=== PATIENT | female | born 1940 | race Caucasian/White ===

== ENCOUNTER 2018-11-28 14:11 | Inpatient (IN) ==
[2018-11-28] MEDS ORDERED: MoRPHine SULFATE 4 MG/ML 1 ML CARP\\VIAL IV STA (15:14)
[2018-11-28] MEDS ORDERED: ONDANSETRON INJ 2 MG/ML 2 ML VIAL IV STA (15:14)
[2018-11-28 15:30] LABS: Basophils # (auto) 0.02 K/uL (0-0.2); Basophils % (auto) 0.2 %; Eosinophils % (auto) 1.7 %; Hemoglobin 12.1 g/dL (12.0-16.0); Immature Granulocytes % (auto) 0.9 %; Lymphocytes % (auto) 14.6 %; Mean Corpuscular Hgb Conc 34.6 g/dL (32-36); Mean Corpuscular Volume 83.7 fL (80-100); Mean Platelet Volume 7.9 fL (7.4-10.4); Monocytes % (auto) 11.2 %; Neutrophils # (auto) 8.31 K/uL (1.4-6.5); Neutrophils % (auto) 71.4 %; Platelet Count 276 K/uL (130-400); RDW Coefficient of Variation 14.1 % (11.5-14.5); RDW Standard Deviation 43.6 fL (36.4-46.3); Red Blood Count 4.18 M/uL (4.2-5.4); White Blood Count 11.63 K/uL (4.8-10.8)
[2018-11-28 15:46] LABS: BUN Creatinine Ratio 20.2 (10-20); Calcium 8.4 mg/dl (8.5-10.1); Creatinine Clr Calc Pharmacy 58.2 ml/min; Est GFR (African American) 96.2; Potassium 3.9 mmol/L (3.5-5.1)
[2018-11-28] MEDS ORDERED: LORazepam 0.5 MG/1 ML VIAL IV STA (15:57)
--- NOTE | 2018-11-28 16:49 | CT Scan Report ---
CT SCAN OF THE LUMBAR SPINE WITHOUT IV CONTRAST CLINICAL HISTORY: Low back pain. COMPARISON STUDY: Abdominal CT dated 11/25/2018 in 09/13/2018. TECHNIQUE: CT scan of the lumbar spine is performed from the lower thoracic spine to the sacrum. Imag es are reviewed in the axial, sagittal, and coronal planes. IV contrast was not administered for this examination. A dose lowering technique was utilized adhering to the principles of ALARA. CT DOSE: 1229.10 mGy.cm FINDINGS: The skeletal structures are heterogeneously osteopenic. There is no evidence of acute fract ure or malalignment. There is a mild to moderate chronic compression deformity of L4, unchanged from prior studies. A chronic compression deformity of T11 with evidence of kyphoplasty is partially visua lized. Vertebral body height is otherwise maintained throughout the lumbar spine. Alignment is preser brunilda. The transverse and spinous processes are intact. There is no spondylolysis. No lytic or blastic lesion is seen. Facet arthropathy is noted in the lower lumbar region. Intervertebral disc spaces are maintained. There is no evidence of large disc herniation or high-grade central canal stenosis by CT . Mild to moderate facet arthropathy is seen in the lower lumbar region. There are bilateral sacral i nsufficiency fractures, as well as chronic posttraumatic deformity of S2. Patchy sclerotic change in the medial right ilium is also unchanged from previous. There is fatty atrophy of the paraspinous mus culature. The partially imaged kidneys demonstrate cortical atrophy. Advanced atherosclerotic calcifi cation is noted in the normal caliber abdominal aorta. No retroperitoneal adenopathy is identified. A normal appendix is identified. IMPRESSION: 1. No acute bony abnormality is identified involving the lumbar spine. There has been no change from the 11/25/[address] scan. 2. A chronic compression deformity of L4 and chronic posttraumatic change/insufficiency fractures of the sacrum are similar to previous. 3. Mild spondylosis as above. Dictated: 11/28/2018 3:59 PM Transcribed: 11/28/2018 4:46 PM Sheri [id number] [facility] Electronically signed by: Rajesh Olivas M.D. 11/28/2018 4:47 PM
--- NOTE | 2018-11-28 16:53 | CT Scan Report ---
CT SCAN OF THE THORACIC SPINE WITHOUT IV CONTRAST CLINICAL HISTORY: Thoracic back pain. COMPARISON STUDY: Chest CT dated 11/25/2018 and 09/13/2018. TECHNIQUE: CT scan of the thoracic spine is performed from the lower cervical spine to the upper lumb ar spine. Images are reviewed in the axial, sagittal, and coronal planes. IV contrast was not adminis tered for this examination. A dose lowering technique was utilized adhering to the principles of ALAR A. FINDINGS: The skeletal structures are heterogeneously osteopenic. There is no evidence of acute fract ure or malalignment involving the thoracic spine. Again seen are compression deformities of T9 and T1 1 with evidence of vertebroplasty. There is mild paravertebral edema identified at the T11 kyphoplast y level. Additional chronic compression deformities are seen involving T6, T7, and T8. These are unch anged from 11/25/2018. No significantly retropulsed fragments are identified. Hyperkyphosis is observed . The transverse and spinous processes are intact. No lytic or blastic lesion is seen. Small anterior osteophytes are seen throughout. There is mild multilevel degenerative disc space narrowing. There i s no evidence of large disc herniation or high-grade central canal stenosis by CT. There is fatty atr ophy of the paraspinous musculature. Multifocal pulmonary metastatic disease as well as hepatic metas tatic disease are similar to previous. A central venous infusion port catheter is partially visualize d. IMPRESSION: 1. No acute bony abnormality is seen involving the thoracic spine. 2. There are numerous chronic compression deformities with evidence of T9 and T11 vertebroplasty. Thi s is unchanged from 11/25/2018. 3. Mild paravertebral edema is noted at the T11 kyphoplasty level. This is nonspecific and may be on a postsurgical basis if vertebroplasty was recent. Clinical correlation will be required. 4. Multifocal pulmonary and hepatic metastases are again noted. Dictated: 11/28/2018 4:07 PM Transcribed: 11/28/2018 4:48 PM Sheri [id number] [facility]_[place] Electronically signed by: Rajesh Olivas M.D. 11/28/2018 4:51 PM
--- NOTE | 2018-11-28 18:04 | Emergency Department Note ---
Entered by Sue Elmore acting as a scribe for History of Present Illness General Chief complaint: Back Injury/Pain Stated complaint: SEVERE BACK PAIN, HIGH BP Time Seen by Provider: 11/28/18 14:46 Source: patient History of Present Illness Onset (ago): year(s) 1 ((acutely worse over the past few days)) Location: back Severity: severe Pain Consistency: + other (worsening) Maximum Pain Intensity: 9 Quality: + other (back pain) Associated symptoms: + other (Positive high blood pressure (abnormal). Negative recent falls, alcohol or tobacco use. ); no nausea/vomiting The patient is a 78 white female w/ PMHx of hypothyroidism, colon cancer, back pain who presents to the ED w/ CC of severe back pain beginning 1 year ago but it is acutely worse over the past couple of days. She reportedly states she came to the ED as she as a car ride for an appointment in the next couple of days that she feels she may not be able to tolerate due to her pain. She is accompanied by a family member who states she has been taking oxycodone for her pain however, it is not been working so she had a fentanyl patch placed 3 days ago however, it is not sticking completely. Her family member also notes that her blood pressure has been abnormally high lately. Pt denies any recent falls, nausea, vomiting, alcohol or tobacco use. She states she had a kyphoplasty done about 2 to 3 weeks ago. Home Medications Home Medications Medication Instructions Recorded Confirmed Type enoxaparin 40 mg SUBCUT DAILY 11/28/18 11/28/18 History ergocalciferol (vitamin D2) 50,000 unit PO WK 11/28/18 11/28/18 History [Vitamin D2] fentanyl 25 mcg TOPICAL Q3D 11/28/18 11/28/18 History levothyroxine 50 mcg PO DAILY 11/28/18 11/28/18 History meloxicam 7.5 mg PO DAILY PRN 11/28/18 11/28/18 History omeprazole 20 mg PO DAILY 11/28/18 11/28/18 History ondansetron HCl 8 mg PO UD PRN 11/28/18 11/28/18 History oxycodone 5 mg PO Q4H PRN 11/28/18 11/28/18 History Allergies Allergy/AdvReac Type Severity Reaction Status Date / Time No Known Allergies Allergy Unverified 11/28/18 15:02 Past Med/Surg History Medical History History of pulmonary embolism (Chronic) 11/2017. On Lovenox Colon cancer metastasized to lung (Chronic) Hypothyroidism (Chronic) HLD (hyperlipidemia) (Chronic) HTN (hypertension) (Chronic) Back pain (Chronic) Colon cancer (Chronic) Hypothyroidism (Chronic) Surgical History H/O kyphoplasty Family History Other No pertinent family history Social History Preferred Language: Dominican Communication Ability: Effective Hand Crocheter Required: No Beliefs That Will Affect Care: None Current Living Situation: Family Current Living Situation Comment: son and dtr Feels Safe at Home: Yes Safety Concerns: Feels Safe At This Time Smoking Status: Never smoker Hx Alcohol Use: No Hx Substance Use: No Review of Systems See HPI for pertinent positives & negatives. and A total of 10 systems reviewed and were otherwise negative Physical Exam Vital Signs Vital Signs - 24 hr 11/28/18 14:26 11/28/18 16:11 Temperature 36.9 C Temperature Source Oral Sepsis Recent Fever Within 48 Hours No Sepsis New/Unexplained Change in Mental Status No Sepsis Action Taken by Nursing No Action Required Pulse Rate 95 H Pulse Rate [Finger] 86 Respiratory Rate 20 21 Blood Pressure 181/94 H Blood Pressure [Left Arm] 135/87 Blood Pressure Mean 123 Blood Pressure Mean [Left Arm] 103 Pulse Oximetry 93 94 Oxygen Delivery Method Room Air Room Air GENERAL: Mildly uncomfortable in appearance. Appears older than stated age. Poor dentition. EYE EXAM: Normal conjunctiva. PERRL, no anisocoria and EOM's grossly intact w/o pain. OROPHARYNX: Moist mucous membranes. Grossly normal dentition. NECK: Supple, no nuchal rigidity, no adenopathy, non-tender. No signs of meningismus. LUNGS: Clear to auscultation. Normal chest wall mechanics. HEART: NSR, no MRG. ABDOMEN: Abdomen soft, non-tender, normo-active bowel sounds, no masses, no rebound or guarding. BACK: Thoracic and lumbar spine TTP SKIN: No rashes and no bruising. UPPER EXTREMITIES: Upper extremities are grossly normal. LOWER EXTREMITIES: Negative straight leg raise bilaterally. No saddle anesthesia. NEURO EXAM: A&O x3, cranial nerves II-XII grossly intact, normal speech, moves all 4 extremities on command w/o issue. Course 1501: Past medical records reviewed. The patient was evaluated in room A3. A complete history and physical exam was performed. 1710: I discussed her findings with her. She is in agreement. 1726: I discussed the patient's case with Nanci Patricia PA-C. Dr. Lino [facility] will evaluate the patient for further management. Consultations Consultation #1: I discussed the patient's case with Nanci Patricia PA-C. Dr. Lino, [facility] will evaluate the patient for further management. Time: 17:26 Administered Medications Acetaminophen (Tylenol) 650 mg PO Q4H PRN PRN Reason: pain/fever Stop: 12/28/18 19:13 Last Admin: 11/28/18 21:58 Dose: 650 mg Documented by: [id number] Baclofen (Lioresal) 10 mg PO BID MIRTA Stop: 12/29/18 08:59 Last Admin: 11/29/18 10:52 Dose: 10 mg Documented by: [id number] Docusate Sodium (Colace) 100 mg PO BID MIRTA Stop: 12/28/18 20:59 Last Admin: 11/29/18 08:02 Dose: 100 mg Documented by: [id number] Admin: 11/28/18 20:41 Dose: Not Given Documented by: [id number] Enoxaparin Sodium (Lovenox) 40 mg SQ DAILY MIRTA Stop: 12/29/18 08:59 Last Admin: 11/29/18 08:01 Dose: 40 mg Documented by: [id number] Fentanyl (Duragesic) 25 mcg TD Q3D MIRTA Stop: 12/12/18 19:29 Last Admin: 11/28/18 20:39 Dose: 25 mcg Documented by: [id number] Hydromorphone HCl (Dilaudid) 1 mg IV Q2H PRN PRN Reason: Pain Stop: 12/12/18 18:10 Last Admin: 11/29/18 15:48 Dose: 1 mg Documented by: [id number] Admin: 11/29/18 10:22 Dose: 1 mg Documented by: [id number] Admin: 11/29/18 07:17 Dose: 1 mg Documented by: [id number] Admin: 11/29/18 03:36 Dose: 1 mg Documented by: [id number] Admin: 11/28/18 22:10 Dose: 1 mg Documented by: [id number] Hydromorphone HCl (Dilaudid) 1 mg PO Q3H PRN PRN Reason: pain Stop: 12/13/18 08:28 Last Admin: 11/29/18 12:55 Dose: 1 mg Documented by: [id number] Levothyroxine Sodium (Synthroid) 50 mcg PO DAILYBB [facility] Stop: 12/29/18 06:29 Last Admin: 11/29/18 06:02 Dose: 50 mcg Documented by: [id number] Lidocaine (Lidoderm 5%) 1 patch TD QAM MIRTA Stop: 12/29/18 08:59 Last Admin: 11/29/18 10:52 Dose: 1 patch Documented by: [id number] Lorazepam (Ativan) 0.5 mg PO Q6 PRN PRN Reason: Anxiety Stop: 12/28/18 19:13 Last Admin: 11/29/18 15:46 Dose: 0.5 mg Documented by: [id number] Admin: 11/29/18 09:33 Dose: 0.5 mg Documented by: [id number] Miscellaneous (Fentanyl Patch Check Placement) 1 ea N/A QS [facility] Stop: 12/29/18 00:00 Last Admin: 11/29/18 15:50 Dose: 1 ea Documented by: [id number] Admin: 11/29/18 08:03 Dose: 1 ea Documented by: [id number] Admin: 11/29/18 01:15 Dose: 1 ea Documented by: [id number] Ondansetron HCl (Zofran) 4 mg IV Q6H PRN PRN Reason: Nausea Stop: 12/28/18 19:13 Last Admin: 11/29/18 06:07 Dose: 4 mg Documented by: [id number] Pantoprazole Sodium (Protonix) 40 mg PO DAILY [facility] Stop: 12/29/18 08:59 Last Admin: 11/29/18 08:02 Dose: 40 mg Documented by: [id number] Polyethylene Glycol (Miralax Powder Packet) 17 gm PO DAILY [facility] Stop: 12/28/18 19:13 Last Admin: 11/29/18 08:02 Dose: 17 gm Documented by: [id number] Admin: 11/28/18 20:41 Dose: Not Given Documented by: [id number] Prednisone (Prednisone) 40 mg PO DAILY [facility] Stop: 12/03/18 09:01 Last Admin: 11/29/18 12:41 Dose: 40 mg Documented by: [id number] Sennosides (Senokot) 8.8 mg PO HS MIRTA Stop: 12/28/18 20:59 Last Admin: 11/28/18 20:41 Dose: Not Given Documented by: [id number] Discontinued Medications Albuterol (Duoneb) 3 ml NEB NOW STA Stop: 11/29/18 11:51 Last Admin: 11/29/18 13:50 Dose: 3 ml Documented by: [id number] Docusate Sodium (Colace) 100 mg PO BID MIRTA Stop: 12/29/18 08:59 Last Admin: 11/29/18 10:52 Dose: 100 mg Documented by: [id number] Lorazepam (Ativan) 0.5 mg in 1 mls @ 1 mls/min IV NOW STA Stop: 11/28/18 15:58 Last Admin: 11/28/18 16:11 Dose: 1 mls/min Documented by: [id number] Morphine Sulfate (Morphine Sulfate) 4 mg IV NOW STA Stop: 11/28/18 15:15 Last Admin: 11/28/18 15:28 Dose: 4 mg Documented by: [id number] Ondansetron HCl (Zofran) 4 mg IV NOW STA Stop: 11/28/18 15:15 Last Admin: 11/28/18 15:28 Dose: 4 mg Documented by: [id number] Medical Decision Making Medical Records Attestation: I reviewed the patient's medical records. 1539: Medical records reviewed. She had an MRI of the lumbar spine without contr ast on 11/20/18. Concern for possible metastatic lesion at L5. Deformity of L4. No canal stenosis. No disc protrusion or herniation. Shows the kyphoplasty at T9 and T11. MRI of the Thoracic Spine was done on 11/04/18. Concerning metastatic lesion at T5. T11 compression fracture. Right 11th rib fracture. No canal stenosis or cord compression. Home Medications Current Medication List: was personally reviewed by me Laboratory Data Attestation: I reviewed the patient's lab results. Result diagrams: 11/29/18 07:28 11/29/18 07:28 Lab Results 11/28/18 11/28/18 Range/Units 15:20 15:20 WBC 11.63 H (4.8-10.8) K/uL RBC 4.18 L (4.2-5.4) M/uL Hgb 12.1 (12.0-16.0) g/dL Hct 35.0 L (37-47) % MCV 83.7 (80-100) fL MCH 28.9 (25-34) pg MCHC 34.6 (32-36) g/dL RDW Std Deviation 43.6 (36.4-46.3) fL RDW Coeff of Humble 14.1 (11.5-14.5) % Plt Count 276 (130-400) K/uL MPV 7.9 (7.4-10.4) fL Immature Gran % (Auto) 0.9 % Neut % (Auto) 71.4 % Lymph % (Auto) 14.6 % [place] % (Auto) 11.2 % Eos % (Auto) 1.7 % Baso % (Auto) 0.2 % Immature Gran # (Auto) 0.10 H (0.00-0.02) K/uL Neut # (Auto) 8.31 H (1.4-6.5) K/uL Lymph # (Auto) 1.70 (1.2-3.4) K/uL [place] # (Auto) 1.30 H (0.11-0.59) K/uL Eos # (Auto) 0.20 (0-0.5) K/uL Baso # (Auto) 0.02 (0-0.2) K/uL Sodium 138 (136-145) mmol/L Potassium 3.9 (3.5-5.1) mmol/L Chloride 99 (98-107) mmol/L Carbon Dioxide 29 (21-32) mmol/L Anion Gap 10.0 (3-11) BUN 14 (7-18) mg/dl Creatinine 0.70 (0.6-1.2) mg/dl Est Cr Clr Drug Dosing 58.2 ml/min Est GFR ( Amer) 96.2 Est GFR (Non-Af Amer) 83.0 BUN/Creatinine Ratio 20.2 H (10-20) Glucose 105 H (70-99) mg/dl Calcium 8.4 L (8.5-10.1) mg/dl Imaging Data Radiologist's Impression: Radiology results as stated below per my review and the radiologist's interpretation: CT SCAN OF THE THORACIC SPINE WITHOUT IV CONTRAST CLINICAL HISTORY: Thoracic back pain. COMPARISON STUDY: Chest CT dated 11/25/2018 and 09/13/2018. TECHNIQUE: CT scan of the thoracic spine is performed from the lower cervical spine to the upper lumbar spine. Images are reviewed in the axial, sagittal, and coronal planes. IV contrast was not administered for this examination. A dose lowering technique was utilized adhering to the principles of ALARA. FINDINGS: The skeletal structures are heterogeneously osteopenic. There is no evidence of acute fracture or malalignment involving the thoracic spine. Again seen are compression deformities of T9 and T11 with evidence of vertebroplasty. There is mild paravertebral edema identified at the T11 kyphoplasty level. Additional chronic compression deformities are seen involving T6, T7, and T8. These are unchanged from 11/25/2018. No significantly retropulsed fragments are identified. Hyperkyphosis is observed. The transverse and spinous processes are intact. No lytic or blastic lesion is seen. Small anterior osteophytes are seen throughout. There is mild multilevel degenerative disc space narrowing. There is no evidence of large disc herniation or high-grade central canal stenosis by CT. There is fatty atrophy of the paraspinous musculature. Multifocal pulmonary metastatic disease as well as hepatic metastatic disease are similar to previous. A central venous infusion port catheter is partially visualized. IMPRESSION: 1. No acute bony abnormality is seen involving the thoracic spine. 2. There are numerous chronic compression deformities with evidence of T9 and T11 vertebroplasty. This is unchanged from 11/25/2018. 3. Mild paravertebral edema is noted at the T11 kyphoplasty level. This is nonspecific and may be on a postsurgical basis if vertebroplasty was recent. Clinical correlation will be required. 4. Multifocal pulmonary and hepatic metastases are again noted. Dictated: 11/28/2018 4:07 PM Transcribed: 11/28/2018 4:48 PM Sheri [id number] [facility]_[place] Electronically signed by: Rajesh Olivas M.D. 11/28/2018 4:[address] SCAN OF THE LUMBAR SPINE WITHOUT IV CONTRAST CLINICAL HISTORY: Low back pain. COMPARISON STUDY: Abdominal CT dated 11/25/2018 in 09/13/2018. TECHNIQUE: CT scan of the lumbar spine is performed from the lower thoracic spine to the sacrum. Images are reviewed in the axial, sagittal, and coronal planes. IV contrast was not administered for this examination. A dose lowering technique was utilized adhering to the principles of ALARA. CT DOSE: 1229.10 mGy.cm FINDINGS: The skeletal structures are heterogeneously osteopenic. There is no evidence of acute fracture or malalignment. There is a mild to moderate chronic compression deformity of L4, unchanged from prior studies. A chronic compression deformity of T11 with evidence of kyphoplasty is partially visualized. Vertebral body height is otherwise maintained throughout the lumbar spine. Alignment is preserved. The transverse and spinous processes are intact. There is no spondylolysis. No lytic or blastic lesion is seen. Facet arthropathy is noted in the lower lumbar region. Intervertebral disc spaces are maintained. There is no evidence of large disc herniation or high-grade central canal stenosis by CT. Mild to moderate facet arthropathy is seen in the lower lumbar region. There are bilateral sacral insufficiency fractures, as well as chronic posttraumatic deformity of S2. Patchy sclerotic change in the medial right ilium is also unchanged from previous. There is fatty atrophy of the paraspinous musculature. The partially imaged kidneys demonstrate cortical atrophy. Advanced atherosclerotic calcification is noted in the normal caliber abdominal aorta. No retroperitoneal adenopathy is identified. A normal appendix is identified. IMPRESSION: 1. No acute bony abnormality is identified involving the lumbar spine. There has been no change from the 11/25/[address] scan. 2. A chronic compression deformity of L4 and chronic posttraumatic change/insufficiency fractures of the sacrum are similar to previous. 3. Mild spondylosis as above. Dictated: 11/28/2018 3:59 PM Transcribed: 11/28/2018 4:46 PM Sheri [id number] [facility] Electronically signed by: Rajesh Olivas M.D. 11/28/2018 4:47 PM Blood Pressure Blood Pressure Findings: Elevated blood pressure Blood Pressure Disposition: further management by hospitalist TOE Nelson The patient is a 78 white female w/ PMHx of hypothyroidism, colon cancer, back pain who presents to the ED w/ CC of severe back pain beginning 1 year ago but it is acutely worse over the past couple of days. Differential diagnosis: Etiologies such as musculoskeletal, disc herniation, fracture, aortic disease, metastatic disease, cord compression, discitis, infection, renal colic, gastrointestinal, acute exacerbation of chronic back pain, sciatica, cauda equina, as well as others were entertained. Patient was seen and evaluated the bedside. The patient is in colon cancer and is expected to see Dr. Perez tomorrow for reinitiation of chemotherapy. The patient has had worsening back pain. The patient has been on fentanyl and Roxicodone at home without significant relief. The patient does appear older than her stated age. The patient has had a kyphoplasty and did have recent MRIs of her thoracic and lumbar spine which I reviewed. The patient reports he does have numerous compression fractures and likely metastatic disease. The patient did a blood work completed which was unremarkable. Repeat CTs of the lumbar T- spine did not show any acute changes. Given the patient's lack of improvement with pain control and the fact that she is already on significant outpatient pain medication I did speak the on-call hospitalist for further evaluation treatment, pain control, and I did recommend a palliative care consult to help establish goals of care as well as to help facilitate adequate pain control as an outpatient. Patient was admitted to the medicine service. Impression & Plan Cancer related pain, Back pain, Compression fracture Discharge Plan Visit Data *Final* Discharge Date/Time: 11/28/18 18:35 Chief Complaint: Back Injury/Pain Stated Complaint: SEVERE BACK PAIN, HIGH BP ED Provider: Jamshid Pearce Discharge Problem: Cancer related pain, Back pain, Compression fracture Patient Disposition: Admitted As Inpatient Discharge Instructions Interventions: ED Discharge Assessment Last Done: 11/28/18 18:35 Discharge Problem: Back pain Qualifiers: Back pain location: back pain in unspecified location Chronicity: chronic Back pain laterality: unspecified Qualified Code(s): M54.9 - Dorsalgia, unspecified The scribe's documentation has been prepared under my direction and personally reviewed by me in its entirety. I confirm that the note above accurately reflects all work, treatment, procedures, and medical decision making performed by me.
--- NOTE | 2018-11-28 18:41 | History & Physical Report ---
Date of Service November 28, 2018 Assessment & Plan (1) Back pain: (2) Compression fracture: Pt is 78 y/o F with PMH colon cancer with metastasis to lung and spine presented with complaint of back pain. Patient with history mid and low back pain for approximately 1 month. Recent hospitalization at [facility] on 11/04/2018- 11/06/2018 for back pain and T9, T11 compression fractures and had kyphoplasty. Patient with continued pain on fentanyl 25 mcg patch and oxycodone 5 mg every 4 hours as needed. 11/04/18: MRI T-spine without contrast: Impression: Acute to subacute compression fractures at T11, T9. Acute to subacute compression fracture progression and T8. There is some edema in T10, but the T1 signal is normal on the height is stable compared to earlier CT from June. There is a focus of abnormal signal in the left pedicle of T5 that is most compatible with intraosseous metastatic lesion. There is unquestionably a sacral insufficiency fracture that has been there since June 2018. Unable to characterize as pathologic or osteoporotic fracture. 11/20/2018 MRI L-spine without contrast: Impression: Area of abnormal signal intensity in the left pedicle of T5 suspicious for metastatic lesion which has been present previously. Also concave deformity of the superior endplate of L4 which has been present previously as well. No new lesions are identified. No evidence of disc protrusion or herniation. No canal stenosis. Today in ER patient afebrile, P, 95, RR: 20, BP 181/94 down to 135/87, 93-94% on room air. WBC: 11.6. CT THORACIC SPINE: 1. No acute bony abnormality is seen involving the thoracic spine. 2. There are numerous chronic compression deformities with evidence of T9 and T11 vertebroplasty. This is unchanged from 11/25/2018. 3. Mild paravertebral edema is noted at the T11 kyphoplasty level. This is nonspecific and may be on a postsurgical basis if vertebroplasty was recent. Clinical correlation will be required. 4. Multifocal pulmonary and hepatic metastases are again noted. CT LUMBAR SPINE: 1. No acute bony abnormality is identified involving the lumbar spine. There has been no change from the 11/25/[address] scan. 2. A chronic compression deformity of L4 and chronic posttraumatic change/insufficiency fractures of the sacrum are similar to previous. 3. Mild spondylosis as above. -In ER patient given Ativan 0.5 mg, 4 mg morphine, Zofran. Patient reports improvement of pain and is resting in bed comfortably at this time. -Continue fentanyl patch -Dilaudid as needed pain -Fall precautions -Oncology consult, regarding if radiation, chemo a consideration -Pain management consult -Consider PT/OT when appropriate -CBC, BMP in a.m. 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 Recent CTA chest on 11/24/2018 at [facility] showed progression of pulmonary metastasis with increase in size Follows with Dr. Perez. Patient reports last chemo 6 to 7 months ago however is poor historian and unsure of dates. -Oncology consult (4) History of pulmonary embolism: H/O PE in 11/2017 on Lovenox Recent CTA chest on 11/24/2018 at [facility] was negative for PE -Continue Lovenox (5) Hypothyroidism: TSH: 4 on 10/29/2018 -Continue levothyroxine DVT Prophylaxis -On Lovenox SQ Full Code for now as per discussion with pt, however wishes to further discuss with her son tomorrow Follows with [facility] for routine care Pt was seen and care coordinated with Dr Lino. See addendum History of Present Illness Chief Complaint: Back pain Primary Care Provider: JAYY Heard Pt is 78 y/o F with PMH HTN, HLD, colon cancer with metastasis to lung and spine, h/o PE in 11/2017 on Lovenox presented to ER with complaint of back pain. Patient with history mid and low back pain for approximately 1 month. Recent hospitalization at [facility] on 11/04/2018-11/06/2018 for back pain and T9, T11 compression fractures and had kyphoplasty. MRI T-spine 11/04/2018: Impression: Acute to subacute compression fractures at T9, T11 and Acute to subacute compression fracture progression and T8. Also showed some edema in T10, abnormal signal in the left pedicle of T5 that is most compatible with intraosseous metastatic lesion. There is unquestionably a sacral insufficiency fracture that has been there since June 2018. Patient on fentanyl patch and oxycodone 5 mg every 4 hours as needed. Reports continued mid and low back pain. Was seen at [facility] ER on 12/04/2018 for shortness of breath and had CTA chest negative for PE with noted progression of pulmonary metastasis with increase in size. Patient denies any SOB or chest pain since. Denies any extremity pain. Reports chronic bilateral toe paresthesias denies any increase. Denies any loss of control of bowel or bladder or saddle paresthesias. Denies any recent falls. Reports ambulates with use of walker. She reports last had chemo 6 to 7 months ago. Reports follows with Dr. Perez. Denies fever/chills, diaphoresis, N/V/D/C, PURCELL, dizziness, syncope, vision changes, neck pain, CP, SOB, orthopnea, palpitations, cough, sore throat, choking, otalgia, rhinorrhea, abdominal pain, extremity edema, rashes, urinary symptoms. Allergies Allergy/AdvReac Type Severity Reaction Status Date / Time No Known Allergies Allergy Unverified 11/28/18 15:02 Home Medications Home Medications Medication Instructions Recorded Confirmed Type enoxaparin 40 mg SUBCUT DAILY 11/28/18 11/28/18 History ergocalciferol (vitamin D2) 50,000 unit PO WK 11/28/18 11/28/18 History [Vitamin D2] fentanyl 25 mcg TOPICAL Q3D 11/28/18 11/28/18 History levothyroxine 50 mcg PO DAILY 11/28/18 11/28/18 History meloxicam 7.5 mg PO DAILY PRN 11/28/18 11/28/18 History omeprazole 20 mg PO DAILY 11/28/18 11/28/18 History ondansetron HCl 8 mg PO UD PRN 11/28/18 11/28/18 History oxycodone 5 mg PO Q4H PRN 11/28/18 11/28/18 History Past Med/Surg History Medical History History of pulmonary embolism (Chronic) 11/2017. On Lovenox Colon cancer metastasized to lung (Chronic) Hypothyroidism (Chronic) HLD (hyperlipidemia) (Chronic) HTN (hypertension) (Chronic) Back pain (Chronic) Colon cancer (Chronic) Hypothyroidism (Chronic) Surgical History H/O kyphoplasty Family History Other No pertinent family history Social History Preferred Language: Norwegian Communication Ability: Effective Internet Webmaster Required: No Beliefs That Will Affect Care: None Current Living Situation: Family Current Living Situation Comment: son and dtr Feels Safe at Home: Yes Safety Concerns: Feels Safe At This Time Smoking Status: Never smoker Hx Alcohol Use: No Hx Substance Use: No Review of Systems Review of Systems: All systems reviewed & are unremarkable except as noted in HPI & below Physical Exam Physical Exam: General: no acute distress currently, lying supine in bed in position of comfort, elderly female, WDWN Head: normocephalic, atraumatic Eyes: PERRL, EOM's intact, conjunctiva non-injected, anicteric ENT: normal inspection external ears, nose, mucous membranes moist Neck: supple, trachea midline, non-tender Lungs: clear, no respiratory distress, no wheezing/rhonchi/rales CV: RRR, no murmur, no pretibial edema Abd: normal BS, soft, non-tender Back: No discoloration or rashes noted. Positive tenderness over lower thoracic and upper lumbar spinous processes. Negative leg raising bilaterally to approximately 45 degrees. Patient able to flex and extend legs at hips and knees bilaterally, distal pulses palpable, sensation to light touch intact Ext: no cyanosis, no calf tenderness Neuro: A&O x 3, no focal deficits noted, mildly anxious affect Skin: warm, dry Results & Data Vital Signs (Past 12 Hours) Vital Signs Temp Pulse Pulse Resp BP BP Pulse Ox 11/28/18 18:27 99 H 21 142/101 H 96 11/28/18 16:11 86 21 135/87 94 11/28/18 14:26 36.9 C 95 H 20 181/94 H 93 Laboratory Results Short CBC 11/28/18 Range/Units 15:20 WBC 11.63 H (4.8-10.8) K/uL Hgb 12.1 (12.0-16.0) g/dL Hct 35.0 L (37-47) % Plt Count 276 (130-400) K/uL BMP 11/28/18 15:20 Sodium 138 Potassium 3.9 Chloride 99 Carbon Dioxide 29 BUN 14 Creatinine 0.70 Glucose 105 H Calcium 8.[address] THORACIC SPINE: IMPRESSION: 1. No acute bony abnormality is seen involving the thoracic spine. 2. There are numerous chronic compression deformities with evidence of T9 and T11 vertebroplasty. This is unchanged from 11/25/2018. 3. Mild paravertebral edema is noted at the T11 kyphoplasty level. This is nonspecific and may be on a postsurgical basis if vertebroplasty was recent. Clinical correlation will be required. 4. Multifocal pulmonary and hepatic metastases are again noted. CT LUMBAR SPINE: IMPRESSION: 1. No acute bony abnormality is identified involving the lumbar spine. There has been no change from the 11/25/[address] scan. 2. A chronic compression deformity of L4 and chronic posttraumatic change/insufficiency fractures of the sacrum are similar to previous. 3. Mild spondylosis as above. Code Status & VTE Plan VTE Prophylaxis Plan VTE Prophylaxis will be ordered: Yes Supervising Physician Co-Signing Physician Notes Patient seen and examined, care coordinated with Mary Patricia PA-C This is a 78-year-old male with history of metastatic colon cancer, presented with intractable low back pain Recent hospitalization in [facility] from [facility] secondary to T9 T1 compression fracture underwent kyphoplasty Recent MRI spine without contrast: Showed acute to subacute fracture progression on T8 Physical exam: General: Elderly female present in moderate pain secondary to discomfort secondary to low back pain HEENT: Sclera nonicteric pupils bilateral equal reactive to light extraocular muscle intact Heart: Regular S1 and S2 no murmur gallop Lungs: Diminished with occasional wheeze noted Musculoskeletal, point tenderness on lower lumbar spine/sacral area, Neuro: No focal neurological deficit ASSESSMENT AND PLAN Intractable low back pain: In a setting of metastatic colon cancer Pain control: Continued outpatient fentanyl 25 MCG patch Ordered for PRN IV Dilaudid Bowel regimen ordered to prevent narcotics induced constipation Pain management consulted Radiation oncology consulted for possible role of radiation in case there is a metastatic bone malignancy causing intractable pain Metastatic colon cancer History of sigmoid colon cancer with metastasis to lung with evidence of possible metastatic lesion on T5 on MRI and 10/2018 THERE IS A FOCUS OF ABNORMAL SIGNAL IN THE LEFT PEDICLE OF T5 THAT IS MOST CO MPATIBLE WITH INTRAOSSEOUS METASTATIC LESION. Radiation oncology consulted Patient follows with hematology oncology [facility] Dr. Ana Paul consulted History of PE: History of pulmonary embolism on 11/2017 on Lovenox Given metastatic malignancy high likelihood of hypercoagulable status, thromboembolic event We will continue prior Lovenox dose CODE STATUS: Discussed with patient, once resuscitation attempts to be made in case of cardiopulmonary arrest, patient is level 1 full code DVT prophylaxis subcu Lovenox Disposition lives at home with son, has good family support Patient will need PT OT evaluation prior to discharge home Please refer to further documentation by Mary Patricia PA-C for discussion of other chronic issues Kimberly Lino MD (1) Back pain Back pain laterality: unspecified Back pain location: back pain in unspecified location Chronicity: chronic Qualified Code(s): M54.9 - Dorsalgia, unspecified; G89.29 - Other chronic pain
[2018-11-28] MEDS ORDERED: ALUMINUM/MAGNESIUM SUSP 30 ML UDC PO PRN (19:14)
[2018-11-28] MEDS ORDERED: MAGNESIUM HYDROXIDE SUSP 30 ML UDC PO PRN (19:14)
[2018-11-28] MEDS: fentaNYL 25 MCG/HR TDSY TD SCH (20:39)
[2018-11-28] MEDS: DOCUSATE SODIUM 100 MG CAP PO SCH (20:41)
[2018-11-28] MEDS: POLYETHYLENE (MIRALAX) 17 GM PACK PO SCH (20:41)
[2018-11-28] MEDS: SENNA 8.8 MG/5 ML UDP PO SCH (20:41)
[2018-11-28] MEDS: ACETAMINOPHEN 325 MG TAB PO PRN (21:58)
[2018-11-28] MEDS: HYDROmorphone INJ 2 MG/ML SYR/VIAL IV PRN (22:10)
[2018-11-28 22:26] LABS: Appearance Urine Clear (Clear); Bacteria Urine Automated Negative (Negative); Bilirubin Urine Negative (Negative); Blood Urine Negative (Negative); Color Urine Yellow; Epithelial Cell Urine Auto >30 /lpf (0-5); Glucose Urine UA Negative (Negative); Ketones Urine Negative (Negative); Leukocyte Esterase Urine Trace (Negative); Nitrite Urine Negative (Negative); Protein Urine Negative (Negative); RBC Urine Automated 0-4 /hpf (0-4); Specific Gravity Urine 1.019 (1.000-1.030); Urobilinogen Urine Negative (Negative)
[2018-11-29] MEDS: CHECK FENTANYL PATCH PLACEMENT SCH ×3 (01:15→15:50)
[2018-11-29] MEDS: HYDROmorphone INJ 2 MG/ML SYR/VIAL IV PRN ×5 (03:36→22:20)
[2018-11-29] MEDS: LEVOTHYROXINE SODIUM 50 MCG TABLET PO SCH (06:02)
[2018-11-29] MEDS: ONDANSETRON INJ 2 MG/ML 2 ML VIAL IV PRN (06:07)
[2018-11-29 08:00] LABS: Hematocrit (blood only) 34.9 % (37-47); Hemoglobin 11.6 g/dL (12.0-16.0); Mean Corpuscular Hgb Conc 33.2 g/dL (32-36); Mean Corpuscular Volume 84.5 fL (80-100); Mean Platelet Volume 8.1 fL (7.4-10.4); Platelet Count 252 K/uL (130-400); RDW Coefficient of Variation 14.4 % (11.5-14.5); RDW Standard Deviation 45.2 fL (36.4-46.3); Red Blood Count 4.13 M/uL (4.2-5.4); White Blood Count 10.93 K/uL (4.8-10.8)
[2018-11-29] MEDS: ENOXAPARIN INJ 40 MG/0.4 ML SYR SQ SCH (08:01)
[2018-11-29] MEDS: DOCUSATE SODIUM 100 MG CAP PO SCH ×2 (08:02→20:38)
[2018-11-29] MEDS: PANTOprazole 40 MG TAB PO SCH (08:02)
[2018-11-29] MEDS: POLYETHYLENE (MIRALAX) 17 GM PACK PO SCH (08:02)
--- NOTE | 2018-11-29 08:15 | Radiation OncologyConsultation ---
Date of Consultation November 29, 2018 Assessment & Plan (1) Colon cancer metastasized to lung: Assessment: Ms. Alexander is a 78-year-old female who presents with metastatic colorectal cancer diagnosed in August 2017. The patient is undergone extensive chemotherapy underneath the supervision of an outside provider. More recently, the patient's care was transferred to Dr. Perez who was planning to reinitiate chemotherapy shortly given the fact the patient has been on treatment break for several months. The patient was admitted to the hospital due to significant lower back pain and does have a history of multiple kyphoplasty procedures. We have been asked to evaluate the patient regarding the role of radiation therapy due to her back pain. Recommendation: 1. We have recommended against any radiation therapy given the fact that the patient's imaging studies show no evidence of metastatic disease involvement of the spine. 2. Orthopedic consultation could be warranted due to previous history of kyphoplasty's and vertebral body compression fractures. 3. Palliative care consultation could be helpful for this patient. Plan: 1. No role for radiation therapy at this point. 2. We will review medical oncology and pain management recommendations. 3. Please call us with any other further questions or concerns. Present on Admission?: Yes History of Present Illness Attending Physician: Kimberly Lino MD History of Present Illness 07/2017. Diagnosed with metastatic colorectal cancer. 09/2017. Started systemic treatment with CAPOX-Avastin and switched to FOLFOX/Avastin. 05/2018. Patient completed 12 cycles of FOLFOX chemotherapy. 09/13/2018. CT of chest. IMPRESSION: 1. Numerous pulmonary nodules highly suggestive of metastatic disease. 2. Several hepatic lesions suggestive of metastatic disease. 09/13/2018. CT of abdomen/pelvis. IMPRESSION: 1. Multiple fractures, many which are subacute, involving the left transverse process of L3, L4 vertebral body, bilateral sacral ala, and left superior acetabulum. These likely represent insufficiency fractures in the setting of osteopenia. No gross evidence of osseous metastatic disease. 2. Primary lesion of the mid to distal sigmoid colon with direct mesenteric and suspected vascular invasion within the sigmoid colon mesentery. 3. No lymphadenopathy. 4. Multiple suspicious hepatic lesions concerning for metastatic disease. These would be better evaluated with an [facility] t enhanced liver MR. Alternatively consider PET/CT. 5. Multiple solid lesions at the lung bases consistent with metastatic disease. 11/17/2018. Medical oncology follow-up with Dr. Perez. Dr. Perez has recommended consideration of restarting chemotherapy. 11/25/2018. CT of chest. IMPRESSION: 1. Overall modest progression of multifocal pulmonary metastatic disease as compared to 09/13/2018. 2. There is no airspace consolidation typical for pneumonia or pleural effusion. 3. Hepatic metastases are again identified. 11/25/2018. CT of abdomen/pelvis. IMPRESSION: 1. Stable to slight decreased size of multiple hepatic lesions. 2. Overall stable size of the primary lesion in the sigmoid colon with direct invasion of the mesentery as on prior exam. 3. No lymphadenopathy. No new sites of disease. 4. Multilevel compression fractures, sacral and sufficiency fractures, an insufficiency fracture of the left acetabulum as on prior exam. 5. Pulmonary metastatic disease. Please see separ ately dictated CT of the chest. 11/28/2018. CT thoracic spine. IMPRESSION: 1. No acute bony abnormality is seen involving the thoracic spine. 2. There are numerous chronic compression deformities with evidence of T9 and T11 vertebroplasty. This is unchanged from 11/25/2018. 3. Mild paravertebral edema is noted at the T11 kyphoplasty level. This is nonspecific and may be on a postsurgical basis if vertebroplasty was recent. Clinical correlation will be required. 4. Multifocal pulmonary and hepatic metastases are again noted. 11/28/2018. CT lumbar spine. IMPRESSION: 1. No acute bony abnormality is identified involving the lumbar spine. There has been no change from the 11/25/[address] scan. 2. A chronic compression deformity of L4 and chronic posttraumatic change/insufficiency fractures of the sacrum are similar to previous. 3. Mild spondylosis as above. 11/28/2018. Patient admitted to the hospital from emergency room due to significant low back pain. Of note, the patient is a history of multiple kyphoplasty procedures for her pain. Allergies Allergy/AdvReac Type Severity Reaction Status Date / Time No Known Allergies Allergy Unverified 11/28/18 15:02 Home Medications Home Medications Medication Instructions Recorded Confirmed Type enoxaparin 40 mg SUBCUT DAILY 11/28/18 11/28/18 History ergocalciferol (vitamin D2) 50,000 unit PO WK 11/28/18 11/28/18 History [Vitamin D2] fentanyl 25 mcg TOPICAL Q3D 11/28/18 11/28/18 History levothyroxine 50 mcg PO DAILY 11/28/18 11/28/18 History meloxicam 7.5 mg PO DAILY PRN 11/28/18 11/28/18 History omeprazole 20 mg PO DAILY 11/28/18 11/28/18 History ondansetron HCl 8 mg PO UD PRN 11/28/18 11/28/18 History oxycodone 5 mg PO Q4H PRN 11/28/18 11/28/18 History Patient History Medical History History of pulmonary embolism (Chronic) 11/2017. On Lovenox Colon cancer metastasized to lung (Chronic) Hypothyroidism (Chronic) HLD (hyperlipidemia) (Chronic) HTN (hypertension) (Chronic) Back pain (Chronic) Colon cancer (Chronic) Hypothyroidism (Chronic) Surgical History H/O kyphoplasty Family History Other No pertinent family history Social History Preferred Language: Mohawk Communication Ability: Effective Salesperson Wigs Required: No Beliefs That Will Affect Care: None Current Living Situation: Family Current Living Situation Comment: son and dtr Feels Safe at Home: Yes Safety Concerns: Feels Safe At This Time Smoking Status: Never smoker Hx Alcohol Use: No Hx Substance Use: No Review of Systems Constitutional: as per Subjective / HPI Musculoskeletal: + back pain Physical Exam Constitutional: + ill appearing Respiratory: normal respiratory effort, lungs clear to auscultation Cardiovascular: RRR, no murmur, no edema Musculoskeletal: no cyanosis or clubbing, extremities motor strength 5/5 Skin: no rashes, warm and dry Psychiatric: A+Ox3, euthymic affect Results Additional Studies 11/28/18 15:14 CT thoracic spine wo con Stat 11/28/18 15:15 CT lumbar spine wo con Stat Time Spent Attending I spent 40 minutes for this consultation, which included obtaining clinical information, performing a physical exam, recommending a plan of action and answering questions. Greater than 50% of the time spent was direct face to face interaction with the patient.
[2018-11-29] MEDS ORDERED: POLYETHYLENE (MIRALAX) 17 GM PACK PO PRN (08:29)
[2018-11-29 09:00] LABS: BUN Creatinine Ratio 23.7 (10-20); Calcium 8.3 mg/dl (8.5-10.1); Creatinine Clr Calc Pharmacy 56.7 ml/min; Est GFR (African American) 91.4; Est GFR (Non-African American) 78.9; Potassium 3.8 mmol/L (3.5-5.1)
[2018-11-29] MEDS ORDERED: DOCUSATE SODIUM 100 MG CAP PO SCH (09:00)
--- NOTE | 2018-11-29 09:00 | Pain Management Consultation ---
Date of Consultation November 29, 2018 Assessment & Plan (1) Sacral insufficiency fracture: 1. I suspect that the patient's pain is predominantly from myofascial spasm as she reports recreation of pain with deep palpation along her quadratus lumborum bilaterally. Recommend initial treatment with baclofen 10 mg p.o. twice daily and Lidoderm patches and heat. Orders are written 2. Recommend initiation of nortriptyline 25 mg p.o. nightly to augment descending pain regulation pathways. Orders are written 3. Recommend continuation of fentanyl 25 mcg every 72 hours but with the addition of oral hydromorphone 1 mg p.o. every 3 as needed for breakthrough pain. 4. If baclofen does not diminish pain from myofascial spasm, we will plan for trigger point injections tomorrow morning. 5. The patient was asked to utilize oral hydromorphone instead of IV hydromorphone for back-up pain relief today to better determine at home pain medication regimen. 6. A bowel regimen of Colace and MiraLAX as needed was instituted. 7. Thank you for this consultation. (2) Compression fracture: (3) Cancer related pain: (4) Colon cancer metastasized to lung: (5) Myofascial pain: History of Present Illness Reason for Consultation: Acute low back pain Attending Physician: Kimberly Lino MD History of Present Illness 78 y/o F with colon cancer and metastasis to lung and spine and history of PE November 2017 and has been treated with chemotherapy in the past. Current oncologist is Dr. Perez. She presented to the [facility] emergency room on 11/28/18 with intractable low back pain. She did have a recent hospitalization at [facility] from 11/04/2018-11/06/2018 for back pain and T9, T11 compression fractures and had kyphoplasty during that time per records. Today she reports 100% axial low back pain without radiation. She denies any bowel or bladder incontinence, motor weakness, decreased sensation, footdrop, fever, chills, and or night sweats at this time. She has been maintained through her primary care provider Alessandra Barragan on fentanyl 25 mcg patch every 72 hours with oxycodone 5 mg p.o. every 4 as needed. The patient reports that she did have some difficulty initially with her fentanyl patch adhering to her body but this concern has subsequently resolved. She reports utilizing up to 6 oxycodone tablets with mild effect. She denies any side effects from her medications including constipation or mental sedation. The patient currently rates her pain as 9 out of 10 cramping aching and stabbing at the lumbosacral junction without radiation while sitting. She reports increase in pain with activity and notes that she is most comfortable when lying on her right side (6 out of 10). Pain Assessment Full Body Front + Back: 1. [facility] Combined Pain Scale: 9-Agonizing - Cannot function. Uncontrolled screaming. Pain scale - at its best (0-10): 7 Pain scale - at its worst (0-10): 10 Allergies Allergy/AdvReac Type Severity Reaction Status Date / Time No Known Allergies Allergy Unverified 11/28/18 15:02 Home Medications Home Medications Medication Instructions Recorded Confirmed Type enoxaparin 40 mg SUBCUT DAILY 11/28/18 11/28/18 History ergocalciferol (vitamin D2) 50,000 unit PO WK 11/28/18 11/28/18 History [Vitamin D2] fentanyl 25 mcg TOPICAL Q3D 11/28/18 11/28/18 History levothyroxine 50 mcg PO DAILY 11/28/18 11/28/18 History meloxicam 7.5 mg PO DAILY PRN 11/28/18 11/28/18 History omeprazole 20 mg PO DAILY 11/28/18 11/28/18 History ondansetron HCl 8 mg PO UD PRN 11/28/18 11/28/18 History oxycodone 5 mg PO Q4H PRN 11/28/18 11/28/18 History Pain History Pain Intensity Pain scale - at its best (0-10): 7 Pain scale - at its worst (0-10): 10 Patient History Medical History History of pulmonary embolism (Chronic) 11/2017. On Lovenox Colon cancer metastasized to lung (Chronic) Hypothyroidism (Chronic) HLD (hyperlipidemia) (Chronic) HTN (hypertension) (Chronic) Back pain (Chronic) Colon cancer (Chronic) Hypothyroidism (Chronic) Surgical History H/O kyphoplasty Family History Other No pertinent family history Social History Preferred Language: Sinhala Communication Ability: Effective Intervention Manager Required: No Beliefs That Will Affect Care: None Current Living Situation: Family Current Living Situation Comment: son and dtr Feels Safe at Home: Yes Safety Concerns: Feels Safe At This Time Smoking Status: Never smoker Hx Alcohol Use: No Hx Substance Use: No Physical Exam Physical Exam: Constitutional: Well-developed, well-nourished, normal weight, poor historian Psych: Awake, alert, and oriented 3 with normal affect and mood. Eyes: Pupils are equally round and reactive to light with normal size pupils Ear, nose, mouth, and throat: Moist nasal and oral membranes, lips and tongues appear normal, no external ear abnormalities are noted Neck: The trachea is midline without deviation and no thyromegaly is noted Respiratory: Normal respiratory effort without distress, no audible wheezes or rhonchi CV: Normal S1 and S2 Chest: Deferred GI/abdomen: Non-tender without guarding Musculoskeletal: Head is normocephalic and atraumatic, gait was not observed Cervical: Lordotic curve: Normal Range of motion is normal with extension, flexion, side-bending, rotation Strength: Strength is grossly equal bilaterally with 5 out of 5 strength in all planes Sensation of upper extremities: Intact bilaterally Thoracic: Kyphotic curve: Normal Range of motion is normal with extension, flexion, side-bending, rotation Tenderness: Nontender over the axial midline Myofascial spasm: Mild appreciable spasm. No discrete trigger points noted Lumbar: Lordotic curve: Normal Range of motion is normal with extension, flexion, side-bending, rotation Tenderness: Moderately tender over the axial midline at the lumbosacral junction only Facet provocation: Negative bilaterally Straight leg raise: Negative bilaterally Step-off injuries: None Strength: Strength is equal bilaterally with 5 out of 5 strength in all planes Sensation of lower extremities: Intact bilaterally Deep tendon reflexes: Rated at 1 + in bilateral L4 and S1 Myofascial spasm: Marked spasm. 4 discrete trigger points noted over quadratus lumborum bilaterally Greater trochanters: Nontender bilaterally Sacroiliac joints: Nontender bilaterally Pathologic reflexes noted: None Skin: No rashes, lesions, ulcers, or induration noted Neuro: No nystagmus noted, the tongue is midline, the patient is able to rotate their head bilaterally : Deferred Results Diagnostic Review CT Findings: 11/28/18 CT SCAN OF THE THORACIC SPINE WITHOUT IV CONTRAST CLINICAL HISTORY: Thoracic back pain. COMPARISON STUDY: Chest CT dated 11/25/2018 and 09/13/2018. TECHNIQUE: CT scan of the thoracic spine is performed from the lower cervical spine to the upper lumbar spine. Images are reviewed in the axial, sagittal, and coronal planes. IV contrast was not administered for this examination. A dose lowering technique was utilized adhering to the principles of ALARA. FINDINGS: The skeletal structures are heterogeneously osteopenic. There is no evidence of acute fracture or malalignment involving the thoracic spine. Again seen are compression deformities of T9 and T11 with evidence of vertebroplasty. There is mild paravertebral edema identified at the T11 kyphoplasty level. Additional chronic compression deformities are seen involving T6, T7, and T8. These are unchanged from 11/25/2018. No significantly retropulsed fragments are identified. Hyperkyphosis is observed. The transverse and spinous processes are intact. No lytic or blastic lesion is seen. Small anterior osteophytes are seen throughout. There is mild multilevel degenerative disc space narrowing. There is no evidence of large disc herniation or high-grade central canal stenosis by CT. There is fatty atrophy of the paraspinous musculature. Multifocal pulmonary metastatic disease as well as hepatic metastatic disease are similar to previous. A central venous infusion port catheter is partially visualized. IMPRESSION: 1. No acute bony abnormality is seen involving the thoracic spine. 2. There are numerous chronic compression deformities with evidence of T9 and T11 vertebroplasty. This is unchanged from 11/25/2018. 3. Mild paravertebral edema is noted at the T11 kyphoplasty level. This is nonspecific and may be on a postsurgical basis if vertebroplasty was recent. Clinical correlation will be required. 4. Multifocal pulmonary and hepatic metastases are again noted. CT SCAN OF THE LUMBAR SPINE WITHOUT IV CONTRAST CLINICAL HISTORY: Low back pain. COMPARISON STUDY: Abdominal CT dated 11/25/2018 in 09/13/2018. TECHNIQUE: CT scan of the lumbar spine is performed from the lower thoracic spine to the sacrum. Images are reviewed in the axial, sagittal, and coronal planes. IV contrast was not administered for this examination. A dose lowering technique was utilized adhering to the principles of ALARA. CT DOSE: 1229.10 mGy.cm FINDINGS: The skeletal structures are heterogeneously osteopenic. There is no evidence of acute fracture or malalignment. There is a mild to moderate chronic compression deformity of L4, unchanged from prior studies. A chronic compression deformity of T11 with evidence of kyphoplasty is partially visualized. Vertebral body height is otherwise maintained throughout the lumbar spine. Alignment is preserved. The transverse and spinous processes are intact. There is no spondylolysis. No lytic or blastic lesion is seen. Facet arthropathy is noted in the lower lumbar region. Intervertebral disc spaces are maintained. There is no evidence of large disc herniation or high-grade central canal stenosis by CT. Mild to moderate facet arthropathy is seen in the lower lumbar region. There are bilateral sacral insufficiency fractures, as well as chronic posttraumatic deformity of S2. Patchy sclerotic change in the medial right ilium is also unchanged from previous. There is fatty atrophy of the paraspinous musculature. The partially imaged kidneys demonstrate cortical atrophy. Advanced atherosclerotic calcification is noted in the normal caliber abdominal aorta. No retroperitoneal adenopathy is identified. A normal appendix is identified. IMPRESSION: 1. No acute bony abnormality is identified involving the lumbar spine. There has been no change from the 11/25/[address] scan. 2. A chronic compression deformity of L4 and chronic posttraumatic change/insufficiency fractures of the sacrum are similar to previous. 3. Mild spondylosis as above.
[2018-11-29] MEDS: LORazepam 0.5 MG TAB PO PRN ×2 (09:33→15:46)
[2018-11-29] MEDS: BACLOFEN 10 MG TAB PO SCH ×2 (10:52→20:37)
[2018-11-29] MEDS: LIDOCAINE 5% 1 PATCH TD SCH (10:52)
--- NOTE | 2018-11-29 10:54 | Consultation Report ---
DATE OF CONSULTATION: 11/29/2018 REASON FOR CONSULTATION: Metastatic colorectal cancer (pulmonary mets). HISTORY OF PRESENT ILLNESS: The patient is a 78-year-old female patient from [facility], currently under Dr. Perez's care with a diagnosis of pulmonary based metastatic colorectal cancer. She as of late has been battling with intractable back pain with a recent hospitalization at [facility] in mid October with back pain involving T9-T11, compression fractures and status post kyphoplasty. I spoke to Dr. Perez informally and there has been no neoplastic evidence of osseous metastatic involvement in the patient's case. Radiation Oncology was consulted today as well. According to Dr. Perez, the patient has been noncompliant and he has tried to arrange for salvage chemotherapy, specifically FOLFIRI in combination with bevacizumab. Dr. Perez had also suggested the patient receive chemotherapy locally because of issues with diarrhea and other toxicities associated with this regimen closer to home for convenience, but has resisted that recommendation. Nonetheless, she has not received any form of chemotherapy in couple of months. I believe she was scheduled to see Dr. Perez later on this week or even perhaps today. Presently pain control is suboptimal. She is having thoracic pain which is poorly controlled. The patient is presently on fentanyl and oxycodone. PAST MEDICAL HISTORY: Again significant for metastatic colorectal cancer (pulmonary). There is no evidence of osseous metastatic disease. History of pulmonary embolism, hypothyroidism, hyperlipidemia, hypertension. PAST SURGICAL HISTORY: Status post kyphoplasty. MEDICATIONS: Prior to admission are enoxaparin 40 mg subQ daily, ergocalciferol 50,000 units p.o. weekly, fentanyl 25 mcg topically q. 72 hours, levothyroxine 50 mcg p.o. daily, meloxicam 7.5 mg p.o. daily p.r.n., omeprazole 20 mg p.o. daily, Zofran 8 mg p.o. p.r.n., oxycodone 5 mg p.o. q. 4 hours p.r.n. ALLERGIES: No known drug allergies. FAMILY HISTORY: Noncontributory. SOCIAL HISTORY: She lives with her family. Nonsmoker, nondrinker. Non-illicit drug user. REVIEW OF SYSTEMS: CONSTITUTIONAL: Mostly for intractable mid to upper thoracic back pain. No fevers, chills or sweats. She is not anorexic or losing weight. SKIN: No rashes or lesions. No history of dermatoses. HEENT: No headaches, lightheadedness or dizziness. No dysphagia or sore throat. LYMPH: No history of lymphoproliferative disease. CARDIAC: No history of coronary artery disease. No current angina or palpitations. PULMONARY: Negative for COPD. No shortness of breath, dyspnea or orthopnea. No cough or hemoptysis. GASTROINTESTINAL: Negative for abdominal pain. She has experienced diarrhea associated with chemotherapy toxicity in the past, thus reluctance to continue chemotherapy. No hematochezia, melena or hsirley rectal bleeding. GENITOURINARY: No hematuria, dysuria, urinary incontinence. PSYCHIATRIC: Negative for anxiety, depression or psychoses. ENDOCRINE: Positive for hypothyroidism. NEUROLOGIC: Negative for seizure, stroke or migraine headache. HEMATOLOGIC: Positive for normocytic normochromic anemia. PHYSICAL EXAMINATION: GENERAL: Very pleasant 78-year-old female, awake, alert and appropriate, in no acute distress. VITAL SIGNS: Temperature 36.8, pulse 82, respiratory rate 16, blood pressure 128/84. SKIN: Warm, dry, noncyanotic without petechia, rash or ecchymosis. HEENT: Head atraumatic, normocephalic. Eyes: PERRLA, EOMI. Sclerae nonicteric. No conjunctival injection. Nares are patent without rhinorrhea or discharge. Throat is clear. Tongue is midline. Mucous membranes are moist. NECK: Supple without JVD or thyromegaly. LYMPHS: No cervical, supraclavicular, axillary or inguinal palpable nodes. HEART: Regular rate and rhythm. No clicks, rubs, murmurs or gallops. LUNGS: Clear to auscultation bilaterally. ABDOMEN: Soft, nontender, nondistended. EXTREMITIES: No clubbing, cyanosis or edema. MUSCULOSKELETAL: Strength and pulses are equal in all 4 quadrants. NEUROLOGICAL: She is awake, alert and oriented x3. Cranial nerves are grossly intact. LABORATORY DATA: WBC count 10,930, hemoglobin 11.6, platelet count 252,000. Chemistries are pending. Urinalysis reveals trace leukocyte esterase. IMPRESSION: 1. Thoracic intractable back pain. 2. Compression fracture, status post kyphoplasty at T11. 3. Metastatic colorectal cancer (pulmonary). 4. History of pulmonary embolism. 5. Hypothyroidism. PLAN: I spoke to Dr. Perez regarding the patient's status. She has been battling with mid thoracic back pain, prior hospitalization, kyphoplasty, opioids and such. There is currently no evidence of metastatic osseous disease. I spoke to Dr. Louisa Elaine, who was also consulted in this case. He agrees there is no evidence, nor is there a role for palliative radiation therapy. Dr. Perez has tried to get this lady to come to the office to begin salvage chemotherapy. Dr Perez plans to administer FOLFIRI with bevacizumab; however, the patient living 30 miles away, has been reluctant because of previous toxicities, particularly diarrhea experienced. Thus, we will try to arrange for followup once she is medically stable and her pain is controlled. There is nothing for Medical Oncology to do at this point and there is no need to start chemotherapy in house. I will effectively sign off, but certainly if a new issue arises, please call us. INDIOD
[2018-11-29] MEDS ORDERED: ALBUT/IPRATROP 3MG/0.5MG NEB 3 ML VIAL NEB STA (11:50)
[2018-11-29] MEDS: predniSONE 20 MG TAB PO SCH (12:41)
[2018-11-29] MEDS: HYDROmorphone HCL 2 MG TAB PO PRN ×2 (12:55→19:28)
--- NOTE | 2018-11-29 20:32 | Hospitalist Progress Note ---
Date of Service November 29, 2018 Assessment & Plan (1) Myofascial pain: Patient input from pain management, possible SI joint pain radiating down to my fistula area, recommend muscle relaxant, medication for neuropathic pain Continue fentanyl patch patient will benefit with SI joint infection (2) Sacral insufficiency fracture: Secondary to osteoporosis: Patient underwent kyphoplasty at [facility] [address] Continue PT OT (3) History of pulmonary embolism: Continue subcu Lovenox high risk of thromboembolism, hypercoagulable state in the setting of colon cancer with mets to lung (4) Colon cancer metastasized to lung: Follows with hematology oncology Dr. Perez, Appreciate input from hematology oncology consult (5) Back pain: Secondary to compression, fracture With kyphoplasty and list on hospital Has minimum improvement of symptoms Pain management consult appreciated Continue PT OT (6) Compression fracture: As outlined above Status: Full code DVT prophylaxis: Subcu Lovenox Disposition: Lives at home with son, PT OT evaluation will be requested prior to this Subjective Back pain has improved, after starting IV Dilaudid, appreciate input from pain management, added Neurontin for radiation sciatica pain Plan for SI joint injection tomorrow No fevers chills have occasional cough no wheeze tolerating diet well Physical Exam Constitutional: + ill appearing; no acute distress Eyes: PERRL, conjunctivae normal, anicteric sclerae ENMT: external ear and nose normal, oropharynx normal Neck: trachea midline, no thyromegaly Respiratory: normal respiratory effort, lungs clear to auscultation Cardiovascular: RRR, no murmur, no edema Gastrointestinal (Abdomen): normal bowel sounds, soft, nontender, no hepatosplenomegaly Musculoskeletal: no cyanosis or clubbing, extremities motor strength 5/5 Skin: no rashes, warm and dry Neurologic: PERRL, EOMI, accommodation nl, no face palsy, no dysarthria Psychiatric: A+Ox3, euthymic affect Results & Data Vital Signs (Past 12 Hours) Vital Signs Temp Pulse Resp BP Pulse Ox 11/29/18 19:40 36.8 C 104 H 20 146/91 H 90 11/29/18 15:20 36.7 C 80 18 153/98 H 92 11/29/18 13:53 83 20 96 11/29/18 12:10 36.6 C 89 20 155/93 H 91 (1) Back pain Back pain laterality: unspecified Back pain location: back pain in unspecified location Chronicity: chronic Qualified Code(s): M54.9 - Dorsalgia, unspecified; G89.29 - Other chronic pain
[2018-11-29] MEDS: SENNA 8.8 MG/5 ML UDP PO SCH (20:38)
[2018-11-29] MEDS ORDERED: NORTRIPTYLINE HCL 25 MG CAP PO SCH (21:00)
[2018-11-30] MEDS: CHECK FENTANYL PATCH PLACEMENT SCH ×4 (00:10→23:45)
[2018-11-30] MEDS: ALBUTEROL HFA 8 GM INHALER INH PRN ×2 (04:46→10:06)
[2018-11-30] MEDS: HYDROmorphone HCL 2 MG TAB PO PRN (04:52)
[2018-11-30] MEDS: LEVOTHYROXINE SODIUM 50 MCG TABLET PO SCH (05:32)
[2018-11-30] MEDS ORDERED: OPTIRAY 320 125ml IV PRN (06:35)
[2018-11-30] MEDS: POLYETHYLENE (MIRALAX) 17 GM PACK PO SCH (06:56)
[2018-11-30] MEDS: DOCUSATE SODIUM 100 MG CAP PO SCH ×2 (06:56→20:51)
--- NOTE | 2018-11-30 07:08 | CT Scan Report ---
CT ANGIOGRAM OF THE CHEST CLINICAL HISTORY: Dyspnea. COMPARISON STUDY: Chest CT dated 11/25/2018 and 08/06/2017. TECHNIQUE: Following the IV administration of 108 cc of Optiray 320, CT angiogram of the thorax was p erformed from the upper abdomen to the thoracic inlet utilizing the pulmonary embolus protocol. Image s are reviewed in the axial, sagittal, and coronal planes. 3-D MIPS are created and assessed. IV cont rast was administered without complication. A dose lowering technique was utilized adhering to the p rinciples of AZAEL. FINDINGS: Thyroid: Imaged portions of the thyroid gland are normal in size and attenuation. Thoracic aorta: There is atherosclerotic calcification of the thoracic aorta, which is normal in nelsy kenna and demonstrates standard 3-vessel arch anatomy. No dissection is seen. Pulmonary vasculature: The pulmonary trunk is mildly dilated measuring 3.3 cm in diameter. This sugge sts pulmonary artery hypertension. There are no filling defects identified in the main, lobar, or pro ximal segmental pulmonary vessels to indicate pulmonary embolus. Evaluation of the peripheral branche s is degraded by suboptimal contrast opacification. Heart: A right internal jugular central venous infusion port is in place. The heart is top normal in size and without pericardial effusion. Lungs and pleural spaces: There is chronic elevation of the right hemidiaphragm with associated atele ctasis of the right lower lung. There is no airspace consolidation typical for pneumonia or pleural e ffusion. Foci of scarring/atelectasis are noted in both lungs. The trachea and central airways are cl ear. Scattered calcified granulomas are observed. Again seen are changes of multifocal pulmonary meta static disease. This is unchanged from 11/25/2018. A right lower lobe lesion on image #145 measures 2.1 cm. A large right middle lobe lesion seen on image were 92 measures 3 cm. Mediastinum: There is no mediastinal lymphadenopathy. Judith: Clear. Axillae: There is no axillary lymphadenopathy. Upper abdomen: There is evidence of hepatic steatosis. A small hiatal hernia is identified. Subtle he patic metastatic disease is again noted. The gallbladder is surgically absent. Skeletal structures: The skeletal structures are heterogeneously osteopenic. The skeletal structures are osteopenic. Degenerative change and hyperkyphosis are noted in the thoracic spine. There are oracle applications analyst bertha compression deformities of T9 and T11 with evidence of previous vertebroplasty. Mild nonspecific paravertebral edema is again noted around T11. There are also chronic compression deformities of T6, T7, and T8. No lytic or blastic bony lesions are seen. There are healed left-sided rib fractures. IMPRESSION: 1. There is no evidence of pulmonary embolus in the main, lobar, or proximal segmental pulmonary rose le. 2. There is unchanged appearance of multifocal pulmonary metastatic disease as compared to 11/25/2018. 3. Hepatic metastases are again identified. 4. There is no airspace consolidation typical for pneumonia or pleural effusion. Electronically signed by: Rajesh Olivas M.D. 11/30/2018 7:06 AM
[2018-11-30] MEDS ORDERED: BUPIVACAINE 0.5 % 5 MG/1 ML PF 10ML VIAL ONE (08:01)
[2018-11-30] MEDS ORDERED: TRIAMCINOLONE ACET 40 MG/ML VIAL ONE (08:01)
[2018-11-30] MEDS ORDERED: HYDROmorphone INJ 0.5 MG/0.5 ML SYR IV PRN (08:18)
--- NOTE | 2018-11-30 08:22 | Pain Management Progress Note ---
Date of Service November 30, 2018 Assessment & Plan (1) Sacral insufficiency fracture: 1. The patient's myofascial spasm has improved with utilization of baclofen 10 mg p.o. twice daily, heat, Lidoderm patches. No indication for trigger point injections this morning. 2. I decreased her nortriptyline to 10 mg p.o. nightly and increased her interval of IV hydromorphone to 0.5 mg IV every 6 hours as needed to minimize risk of confusion. Orders are written 3. Recommend continuation of fentanyl 25 mcg every 72 hours and bowel regimen. 4. Consider palliative care consult, either inpatient or outpatient, to assist in overall care of this patient. I did not speak with the patient in this regard. (2) Compression fracture: (3) Cancer related pain: (4) Colon cancer metastasized to lung: (5) Myofascial pain: Subjective 78 y/o F with colon cancer and metastasis to lung and spine treated with chemotherapy in the past. XRT and inpatient chemo deferred at this time after oncology and radiation oncology consultation yesterday. In the last 24 hours she utilized 3 mg of IV hydromorphone and 3 mg of oral hydromorphone with benefit. She did have some confusion overnight as well as hypoxia and a negative CT scan for PE. Today she reports 100% axial low back pain without radiation and notes improvement from yesterday. She denies any bowel or bladder incontinence, motor weakness, decreased sensation, footdrop, fever, chills, and or night sweats at this time. The patient currently rates her pain as 7 out of 10 cramping aching at the lumbosacral junction without radiation while sitting. She reports increase in pain with activity and notes that she is most comfortable when lying on her right side (4-5 out of 10). Physical Exam Physical Exam: Constitutional: Well-developed, well-nourished, normal weight, poor historian and very confused on examination today Psych: Awake, alert, and oriented 2 Eyes: Pupils are equally round and reactive to light with normal size pupils Ear, nose, mouth, and throat: Moist nasal and oral membranes, lips and tongues appear normal, no external ear abnormalities are noted Neck: The trachea is midline without deviation and no thyromegaly is noted Respiratory: Normal respiratory effort without distress CV: Normal S1 and S2 Musculoskeletal: Head is normocephalic and atraumatic, gait was not observed as patient was sitting in bed eating Thoracic: Kyphotic curve: Normal Range of motion is normal with extension, flexion, side-bending, rotation Tenderness: Nontender over the axial midline Myofascial spasm: Minimal appreciable spasm. No discrete trigger points noted Lumbar: Lordotic curve: Normal Range of motion is normal with extension, flexion, side-bending, rotation Tenderness: Mild to moderately tender over the axial midline at the lumbosacral junction only Facet provocation: Negative bilaterally Straight leg raise: Negative bilaterally Step-off injuries: None Strength: Strength is equal bilaterally with 5 out of 5 strength in all planes Sensation of lower extremities: Intact bilaterally Deep tendon reflexes: Rated at 1 + in bilateral L4 and S1 Myofascial spasm: Mild to moderate spasm. 4 discrete trigger points noted over quadratus lumborum bilaterally though less tender than on exam yesterday Greater trochanters: Nontender bilaterally Sacroiliac joints: Nontender bilaterally Pathologic reflexes noted: None Skin: No rashes, lesions, ulcers, or induration noted Neuro: No nystagmus noted, the tongue is midline, the patient is able to rotate their head bilaterally
[2018-11-30] MEDS: BACLOFEN 10 MG TAB PO SCH ×2 (09:15→20:51)
[2018-11-30] MEDS: PANTOprazole 40 MG TAB PO SCH (09:15)
[2018-11-30] MEDS: LIDOCAINE 5% 1 PATCH TD SCH (09:16)
[2018-11-30] MEDS: predniSONE 20 MG TAB PO SCH (09:16)
[2018-11-30] MEDS: ACETAMINOPHEN 325 MG TAB PO PRN (10:31)
[2018-11-30] MEDS ORDERED: LORazepam 0.5 MG TAB PO STA (10:43)
[2018-11-30] MEDS ORDERED: ALBUT/IPRATROP 3MG/0.5MG NEB 3 ML VIAL NEB PRN (14:46)
[2018-11-30] MEDS: LORazepam 0.5 MG TAB PO PRN (14:47)
[2018-11-30] MEDS ORDERED: HydrALAZINE HCL 20 MG/ML VIAL IV ONE (14:47)
[2018-11-30] MEDS: ESCITALOPRAM OXALATE 10 MG TAB PO SCH (16:12)
--- NOTE | 2018-11-30 16:27 | Hospitalist Progress Note ---
Date of Service November 30, 2018 Assessment & Plan (1) Generalized anxiety disorder with panic attacks: Patient developed severe anxiety episodes leading to tachycardia and tachypnea/hypertensive episodes Symptoms improved after getting p.o. Ativan Patient's son with reports, patient always been an anxious person her whole life Recently her anxiety episodes has worsened to the point she feels she cannot breathe, Patient continues to worry nonstop about her disease about her pain /finances Lives with son: Pretty much takes care of household and finances Her son said event after reassuring multiple times-patient continues to worry about bills, PRN Ativan ordered Started on low-dose escitalopram/SSRI 10 mg daily Psych eval requested (2) Myofascial pain: Appreciate input from pain management, Initial plan was for trigger point injection, Started with muscle relaxant, Continue fentanyl patch Morning patient reports of improvement/resolution of low back pain No indication of trigger point injection Dr. Delacruz voiced concern regarding patient's confusion very labile mood, CT head noncontrast ordered, shows no evidence of any metastatic disease She is overall prognosis remains very poor Palliative care would be appropriate Given patient's severe anxiety status unable to accept current disease process, will wait for psychiatry recommendation, and discussed with patient's family if they are willing for palliative care consult (3) Sacral insufficiency fracture: Secondary to osteoporosis: Patient underwent kyphoplasty at [facility] Continue PT OT Lives at home with son Does not want to go to inpatient rehab, family feels patient will be worse of at rehab secondary to her severe anxiety disorder José Antonio for home health and home physical therapy recommendation (4) History of pulmonary embolism: Continue subcu Lovenox high risk of thromboembolism, hypercoagulable state in the setting of colon cancer with mets to lung Developed acute shortness of breath tachypnea tachycardia overnight CT chest noncontrast shows no evidence of acute PE Possible respiratory symptoms secondary to panic attack, acute anxiety symptoms, P.o. Ativan helped to subside respiratory distress Continue to monitor Continue Lovenox for DVT prophylaxis (5) Colon cancer metastasized to lung: Follows with hematology oncology Dr. Perez, Appreciate input from hematology oncology consult She has not been following with hematology oncology missed prior chemo treatment for the side effect of nausea vomiting diarrhea Need to reestablish care Patient's overall prognosis remains poor, Hospice palliative care support would be appropriate, will discuss with patient and family (6) Back pain: Secondary to compression, fracture With kyphoplasty and list on hospital Has minimum improvement of symptoms Pain management consult appreciated Continue PT OT (7) Compression fracture: As outlined above Status: Full code DVT prophylaxis: Subcu Lovenox Disposition: Lives at home with son, Return back home with family support, willing for home PT home physical therapy Subjective Patient was confused this morning, to be tachycardic tachypneic, audible wheeze, pulse oxygenation 95% room air Patient's complaint of not able to breathe, feeling throat closing down Similar to to her prior anxiety disorder panic attack Given p.o. low-dose Ativan, with improvement of symptoms, Oxygen via nasal cannula kept on as patient felt more comfortable/assured with supplemental O2 Back pain has improved significantly, did not require trigger point injection by pain management Spoke with patient's son and patient, patient appears to be overwhelmed with current disease process, and ongoing decline Patient son reports: Patient always been anxious person, but her panic attack got worse in the last few weeks, since her last admission at least on hospital Physical Exam Constitutional: + ill appearing, + in distress (In moderate distress very anxious) and + diaphoretic Eyes: PERRL, conjunctivae normal, anicteric sclerae ENMT: external ear and nose normal, oropharynx normal Neck: trachea midline, no thyromegaly Respiratory: normal respiratory effort, lungs clear to auscultation Cardiovascular: RRR, no murmur, no edema Gastrointestinal (Abdomen): normal bowel sounds, soft, nontender, no hepatosplenomegaly Musculoskeletal: no cyanosis or clubbing, extremities motor strength 5/5 Skin: no rashes, warm and dry Neurologic: PERRL, EOMI, accommodation nl, no face palsy, no dysarthria Psychiatric: Orientation: alert and oriented x 3 Affect: + anxious affect (Extremely anxious with tachycardia tachypnea) Results & Data Vital Signs (Past 12 Hours) Vital Signs Temp Pulse Resp BP Pulse Ox Pulse Ox Pulse Ox 11/30/18 16:10 36.8 C 87 20 165/76 H 91 11/30/18 14:40 28 H 196/104 H 94 11/30/18 13:09 95 95 11/30/18 11:23 36.7 C 80 20 155/88 H 92 11/30/18 10:28 94 11/30/18 07:45 36.6 C 76 18 151/89 H 95 11/30/18 05:17 82 16 136/77 92 11/30/18 05:06 89 20 152/93 H 94 11/30/18 04:58 102 H 20 173/61 H 94 11/30/18 04:48 100 H 26 H 77 L (1) Back pain Back pain laterality: unspecified Back pain location: back pain in unspecified location Chronicity: chronic Qualified Code(s): M54.9 - Dorsalgia, unspecified; G89.29 - Other chronic pain
--- NOTE | 2018-11-30 16:57 | CT Scan Report ---
CT head/brain wo con CT DOSE: 1577.26 mGycm HISTORY: Mental status change hx of metastatic cancer /confusion TECHNIQUE: Multiaxial CT images of the head were performed without the use of intravenous contrast. A dose lowering technique was utilized adhering to the principles of ALARA. Comparison: None. Findings: The paranasal sinuses and mastoid air cells are clear. The calvarium and skull base are int act. The ventricles and sulci are within normal limits. There is no mass, hematoma, midline shift, or acute infarct. Impression: No acute intracranial abnormality. Age-related atrophy and chronic small vessel change The above report was generated using voice recognition software. It may contain grammatical, syntax or spelling errors. Electronically signed by: Joe Ardon M.D. 11/30/2018 4:56 PM
[2018-11-30] MEDS ORDERED: MoRPHine SULFATE 5 MG/0.25 ML UDP PO PRN (18:30)
[2018-11-30] MEDS ORDERED: NORTRIPTYLINE HCL 10 MG CAP PO SCH (21:00)
[2018-11-30] MEDS: SENNA 8.8 MG/5 ML UDP PO SCH ×2 (21:07→21:54)
[2018-12-01] MEDS: LEVOTHYROXINE SODIUM 50 MCG TABLET PO SCH (05:22)
[2018-12-01] MEDS: DOCUSATE SODIUM 100 MG CAP PO SCH ×2 (08:21→20:44)
[2018-12-01] MEDS: POLYETHYLENE (MIRALAX) 17 GM PACK PO SCH (08:21)
[2018-12-01] MEDS: CHECK FENTANYL PATCH PLACEMENT SCH ×3 (08:22→23:23)
[2018-12-01] MEDS: predniSONE 20 MG TAB PO SCH (08:23)
[2018-12-01] MEDS: BACLOFEN 10 MG TAB PO SCH ×3 (08:23→20:44)
[2018-12-01] MEDS: ESCITALOPRAM OXALATE 10 MG TAB PO SCH (08:23)
[2018-12-01] MEDS: LIDOCAINE 5% 1 PATCH TD SCH (08:23)
[2018-12-01] MEDS: ENOXAPARIN INJ 40 MG/0.4 ML SYR SQ SCH (08:24)
[2018-12-01] MEDS: PANTOprazole 40 MG TAB PO SCH (08:24)
--- NOTE | 2018-12-01 08:46 | Pain Management Progress Note ---
Date of Service December 01, 2018 Assessment & Plan (1) Sacral insufficiency fracture: * Patient was experiencing excessive sedation, likely a combination of muscle relaxant, opiate and benzodiazepine. Possibly related to nortriptyline. * Discontinue Nortriptyline. * Reduce Baclofen to 5 mg TID. * Discontinue morphine. * Continue fentanyl and oral opioids for breakthrough pain. (2) Compression fracture: (3) Cancer related pain: (4) Colon cancer metastasized to lung: (5) Myofascial pain: Subjective Center reports significant improvement in her pain and spasms today. She does not report any sedation or cognitive changes. She reports minimal spasms in the distal lumbar spine and minimal pain over the sacrum. Denies any new complaints. Physical Exam Constitutional: no acute distress Musculoskeletal: Spine: + limited thoraco-lumbar ROM, + kyphosis, + pain with thoraco-lumbar ROM, + paraspinal tenderness and + sacral tenderness; no sacral edema and no sacral erythema Extremities: strength 5/5 throughout Straight leg raising negative Neurologic: normal touch/pain/proprioception
[2018-12-01] MEDS: AMLODIPINE BESYLATE 5 MG TAB PO SCH (11:24)
[2018-12-01] MEDS: ALBUTEROL HFA 8 GM INHALER INH PRN (12:49)
--- NOTE | 2018-12-01 17:00 | Psychiatric Consultation ---
Date of Consultation December 01, 2018 Impression / Recommendations Impression Patient with long-standing generalized anxiety disorder per son's report, just started on escitalopram 10 mg daily by the primary team which is an appropriate intervention. Recommend avoiding benzodiazepines given risk of ASTROCHEMIST depression/sedation/falls/cognitive impairment with polypharmacy and multiple other sedating medications. She can follow up with her PCP to determine if further titration of SSRI is appropriate. Thank you for the consultation, please call with questions. Psych History Chief Complaint "I gets shaky". History of Present Illness 78 y/o F with anxiety, HTN, HLD, colon cancer with metastasis to lung and spine, h/o PE who presented to ER 11/28/2018 with complaint of back pain for the past month. She was admitted to the hospitalist service, escitalopram 10 mg daily and lorazepam 0.5 mg every 6 hours as needed was added for anxiety. Psychiatry was consulted due to ongoing anxiety. On my assessment, the patient states that she gets "shaky" daily for about 30 minutes, and denies all other symptoms of panic and generalized anxiety. She later reports that she worries "a little." She denies any problems with mood. Sleep has been worse recently due to pain, but was improved last night as pain control is better. She denies anhedonia, suicidal ideation, changes in appetite, concentration, and guilt. Her son spoke with the primary attending and reported that the patient has always been anxious, and that at times feels so anxious she thinks she cannot breathe. She worries nonstop about her disease, pain, and finances. She worries about having to pay bills, and does not respond to reassurance from her son, even though he manages all of the financial concerns. She was seen by radiation oncology, who recommended against radiation therapy, and suggested orthopedic and palliative care consultations. She is also been seen by pain management, who are making multiple medication recommendations. She had some sedation thought to be due to polypharmacy (baclofen, fentanyl, lorazepam, and nortriptyline) Allergies Allergy/AdvReac Type Severity Reaction Status Date / Time No Known Allergies Allergy Unverified 11/28/18 15:02 Home Medications Home Medications Medication Instructions Recorded Confirmed Type enoxaparin 40 mg SUBCUT DAILY 11/28/18 11/28/18 History ergocalciferol (vitamin D2) 50,000 unit PO WK 11/28/18 11/28/18 History [Vitamin D2] fentanyl 25 mcg TOPICAL Q3D 11/28/18 11/28/18 History levothyroxine 50 mcg PO DAILY 11/28/18 11/28/18 History meloxicam 7.5 mg PO DAILY PRN 11/28/18 11/28/18 History omeprazole 20 mg PO DAILY 11/28/18 11/28/18 History ondansetron HCl 8 mg PO UD PRN 11/28/18 11/28/18 History oxycodone 5 mg PO Q4H PRN 11/28/18 11/28/18 History Personal History Beliefs That Will Affect Care: None Patient History Medical History History of pulmonary embolism (Chronic) 11/2017. On Lovenox Colon cancer metastasized to lung (Chronic) Hypothyroidism (Chronic) HLD (hyperlipidemia) (Chronic) HTN (hypertension) (Chronic) Back pain (Chronic) Colon cancer (Chronic) Hypothyroidism (Chronic) Surgical History H/O kyphoplasty Family History Other No pertinent family history Social History Preferred Language: Greek Communication Ability: Effective Hardware Design Engineer Required: No Beliefs That Will Affect Care: None Current Living Situation: Family Current Living Situation Comment: son and dtr Feels Safe at Home: Yes Safety Concerns: Feels Safe At This Time Smoking Status: Never smoker Hx Alcohol Use: No Hx Substance Use: No Physical Exam Psychiatric: Orientation: alert and cooperative Apperance: appropriately dressed, appropriately groomed and appeared stated age Eye Contact: good eye contact Motor Behavior: no abnormal motor movements Speech: normal rate/rhythm/volume of speech Affect: euthymic affect "not bad" Thought Process: goal directed thought process and + concrete thought process Thought Content: reality based without delusions Suicidal Thoughts: denies suicidal thoughts Homicidal Thoughts: denies homicidal thoughts Hallucinations: no auditory hallucinations Cognition: attention grossly intact and language grossly intact Insight: + fair insight Judgement: + fair judgement Vital Signs (Past 24 Hours): Last Vital Signs Temp 36.5 C 12/01/18 16:21 Pulse 97 H 12/01/18 16:21 Resp 18 12/01/18 16:21 BP 100/61 12/01/18 16:21 Pulse Ox 97 12/01/18 16:21 Review of Systems Pain improved, denies GI, cardiovascular, manic and psychotic symptoms Results & Data Medications Administered Acetaminophen (Tylenol) 650 mg PO Q4H PRN PRN Reason: pain/fever Stop: 12/28/18 19:13 Last Admin: 11/30/18 10:31 Dose: 650 mg Documented by: [id number] Admin: 11/28/18 21:58 Dose: 650 mg Documented by: [id number] Albuterol (Ventolin Hfa) 2 puffs INH Q4H PRN PRN Reason: wheeze Stop: 12/29/18 11:49 Last Admin: 12/01/18 12:49 Dose: 2 puffs Documented by: [id number] Admin: 11/30/18 10:06 Dose: 2 puffs Documented by: [id number] Admin: 11/30/18 04:46 Dose: 2 puffs Documented by: [id number] Amlodipine Besylate (Norvasc) 5 mg PO QAM [facility] Stop: 12/31/18 09:29 Last Admin: 12/01/18 11:24 Dose: 5 mg Documented by: [id number] Baclofen (Lioresal) 5 mg PO BID [facility] Stop: 12/31/18 08:59 Last Admin: 12/01/18 09:05 Dose: Not Given Documented by: [id number] Docusate Sodium (Colace) 100 mg PO BID [facility] Stop: 12/28/18 20:59 Last Admin: 12/01/18 08:21 Dose: Not Given Documented by: [id number] Admin: 11/30/18 20:51 Dose: 100 mg Documented by: [id number] Admin: 11/30/18 06:56 Dose: Not Given Documented by: [id number] Admin: 11/29/18 20:38 Dose: Not Given Documented by: [id number] Admin: 11/29/18 08:02 Dose: 100 mg Documented by: [id number] Admin: 11/28/18 20:41 Dose: Not Given Documented by: [id number] Enoxaparin Sodium (Lovenox) 40 mg SQ DAILY [facility] Stop: 12/29/18 08:59 Last Admin: 12/01/18 08:24 Dose: 40 mg Documented by: [id number] Admin: 11/29/18 08:01 Dose: 40 mg Documented by: [id number] Escitalopram Oxalate (Lexapro Tab) 10 mg PO QAM [facility] Stop: 12/30/18 14:44 Last Admin: 12/01/18 08:23 Dose: 10 mg Documented by: [id number] Admin: 11/30/18 16:12 Dose: 10 mg Documented by: [id number] Fentanyl (Duragesic) 25 mcg TD Q3D [facility] Stop: 12/12/18 19:29 Last Admin: 11/28/18 20:39 Dose: 25 mcg Documented by: [id number] Ioversol (Optiray 320 125ml) 125 ml IV ONCE PRN PRN Reason: Interaction Checking Stop: 12/04/18 06:34 Last Admin: 11/30/18 06:36 Dose: 108 ml Documented by: [id number] Levothyroxine Sodium (Synthroid) 50 mcg PO DAILYBB [facility] Stop: 12/29/18 06:29 Last Admin: 12/01/18 05:22 Dose: 50 mcg Documented by: [id number] Admin: 11/30/18 05:32 Dose: 50 mcg Documented by: [id number] Admin: 11/29/18 06:02 Dose: 50 mcg Documented by: [id number] Lidocaine (L[facility]oderm 5%) [facility] [place]: 12/29/18 08:59 Last Admin: 12/01/18 08:23 Dose: 1 patch Documented by: [id number] Admin: 11/30/18 09:16 Dose: 1 patch Documented by: [id number] Admin: 11/29/18 10:52 Dose: 1 patch Documented by: [id number] Lorazepam (Ativan) 0.5 mg PO Q6 PRN PRN Reason: Anxiety Stop: 12/28/18 19:13 Last Admin: 11/30/18 14:47 Dose: 0.5 mg Documented by: [id number] Admin: 11/29/18 15:46 Dose: 0.5 mg Documented by: [id number] Admin: 11/29/18 09:33 Dose: 0.5 mg Documented by: [id number] Miscellaneous (Fentanyl Patch Check Placement) 1 ea N/A QS [facility] Stop: 12/29/18 00:00 Last Admin: 12/01/18 16:05 Dose: 1 ea Documented by: [id number] Admin: 12/01/18 08:22 Dose: 1 ea Documented by: [id number] Admin: 11/30/18 23:45 Dose: 1 ea Documented by: [id number] Admin: 11/30/18 16:27 Dose: 1 ea Documented by: [id number] Admin: 11/30/18 09:16 Dose: 1 ea Documented by: [id number] Admin: 11/30/18 00:10 Dose: 1 ea Documented by: [id number] Admin: 11/29/18 15:50 Dose: 1 ea Documented by: [id number] Admin: 11/29/18 08:03 Dose: 1 ea Documented by: [id number] Admin: 11/29/18 01:15 Dose: 1 ea Documented by: [id number] Miscellaneous (Remove Lidoderm Patch) 1 ea N/A DAILY@2100 [facility] Stop: 12/29/18 20:59 Last Admin: 11/30/18 20:56 Dose: 1 ea Documented by: [id number] Admin: 11/29/18 20:38 Dose: 1 ea Documented by: [id number] Ondansetron HCl (Zofran) 4 mg IV Q6H PRN PRN Reason: Nausea Stop: 12/28/18 19:13 Last Admin: 11/29/18 06:07 Dose: 4 mg Documented by: [id number] Pantoprazole Sodium (Protonix) 40 mg PO DAILY [facility] Stop: 12/29/18 08:59 Last Admin: 12/01/18 08:24 Dose: 40 mg Documented by: [id number] Admin: 11/30/18 09:15 Dose: 40 mg Documented by: [id number] Admin: 11/29/18 08:02 Dose: 40 mg Documented by: [id number] Polyethylene Glycol (Miralax Powder Packet) 17 gm PO DAILY [facility] Stop: 12/28/18 19:13 Last Admin: 12/01/18 08:21 Dose: Not Given Documented by: [id number] Admin: 11/30/18 06:56 Dose: Not Given Documented by: [id number] Admin: 11/29/18 08:02 Dose: 17 gm Documented by: [id number] Admin: 11/28/18 20:41 Dose: Not Given Documented by: [id number] Prednisone (Prednisone) 40 mg PO DAILY [facility] Stop: 12/03/18 09:01 Last Admin: 12/01/18 08:23 Dose: 40 mg Documented by: [id number] Admin: 11/30/18 09:16 Dose: 40 mg Documented by: [id number] Admin: 11/29/18 12:41 Dose: 40 mg Documented by: [id number] Sennosides (Senokot) 8.8 mg PO HS [facility] Stop: 12/30/18 20:59 Last Admin: 11/30/18 21:54 Dose: 8.8 mg Documented by: [id number]
--- NOTE | 2018-12-01 19:18 | Hospitalist Progress Note ---
Date of Service December 01, 2018 Assessment & Plan (1) Generalized anxiety disorder with panic attacks: LACIE, Panic Attacks Started on Escitalopram 10mg daily Appreciate Psychiatry Input (2) Myofascial pain: Appreciate pain management Input Adjust baclofen to 5 mg TID y Continue fentanyl and oral opiates for breakthrough pain No plan for trigger point injection as symptomatically improved (3) Sacral insufficiency fracture: Secondary to osteoporosis: Patient underwent kyphoplasty at [facility] Continue PT OT Lives at home with son Patient currently not interested in inpatient rehab placement Patient prefers to be discharged home with home PT (4) History of pulmonary embolism: Continue SQ Lovenox high risk of thromboembolism, hypercoagulable state in the setting of colon cancer with mets to lung CT chest noncontrast shows no evidence of acute PE Wean off oxygen as able (5) Colon cancer metastasized to lung: Follows with hematology oncology Dr. Perez, Appreciate input from hematology oncology consult She has not been following with hematology oncology missed prior chemo treatment for the side effect of nausea vomiting diarrhea Need to reestablish care Patient's overall prognosis remains poor Hospice palliative care support would be appropriate (6) Back pain: Secondary to compression, fracture With kyphoplasty Has minimum improvement of symptoms Pain management consult appreciated Continue PT OT (7) Compression fracture: As outlined above Code Status: Full code DVT Px: SQ Lovenox Disposition: Plan to discharge home with home physical therapy Subjective Patient seen and examined at bedside Reports shortness of breath on exertion Right sacral pain, spasm much improved Offers no other complaints Family at bedside Review of Systems Review of Systems: All systems reviewed & are unremarkable except as noted in HPI & below Physical Exam Physical Exam: Physical Exam: Vitals signs as noted above General Appearance:Moderately built and nourished, no apparent distress Head: normocephalic, Atraumatic Eyes: normal inspection, EOMI Neck: supple, Trachea midline Respiratory/Chest: Normal breath sounds, CTA Cardiovascular: S1, S2, No murmur Abdomen/GI:Soft, Non tender, Bowel sounds present Back: Paraspinal/Sacral tenderness Extremities/Musculoskelatal:normal inspection, no edema Neurologic/Psych:AAOX3, grossly no focal neurological deficits Skin: normal color, warm Results & Data Vital Signs (Past 12 Hours) Vital Signs Temp Pulse Resp BP Pulse Ox 12/01/18 16:21 36.5 C 97 H 18 100/61 97 12/01/18 12:17 159/92 H 94 12/01/18 11:35 36.6 C 80 18 178/102 H 93 12/01/18 08:28 36.8 C 90 20 211/115 H 95 (1) Back pain Back pain laterality: unspecified Back pain location: back pain in unspecifi ed location Chronicity: chronic Qualified Code(s): M54.9 - Dorsalgia, unspecified; G89.29 - Other chronic pain
[2018-12-01] MEDS: SENNA 8.8 MG/5 ML UDP PO SCH (20:43)
[2018-12-01] MEDS: fentaNYL 25 MCG/HR TDSY TD SCH (20:52)
[2018-12-02] MEDS: ACETAMINOPHEN 325 MG TAB PO PRN ×3 (03:25→23:29)
[2018-12-02] MEDS: ONDANSETRON INJ 2 MG/ML 2 ML VIAL IV PRN (04:50)
[2018-12-02] MEDS: LEVOTHYROXINE SODIUM 50 MCG TABLET PO SCH (05:50)
[2018-12-02] MEDS: CHECK FENTANYL PATCH PLACEMENT SCH ×3 (08:38→23:05)
[2018-12-02] MEDS: ESCITALOPRAM OXALATE 10 MG TAB PO SCH (08:39)
[2018-12-02] MEDS: DOCUSATE SODIUM 100 MG CAP PO SCH ×2 (08:39→20:08)
[2018-12-02] MEDS: BACLOFEN 10 MG TAB PO SCH ×2 (08:40→20:08)
[2018-12-02] MEDS: ENOXAPARIN INJ 40 MG/0.4 ML SYR SQ SCH (08:42)
[2018-12-02] MEDS: POLYETHYLENE (MIRALAX) 17 GM PACK PO SCH (08:42)
--- NOTE | 2018-12-02 08:42 | Pain Management Progress Note ---
Date of Service December 02, 2018 Assessment & Plan (1) Sacral insufficiency fracture: Continue Fentanyl patch 25mcg, Baclofen 5mg BID, and Tylenol PRN breakthrough pain. Patient does seem pleased with her current pain relief and does not request any changes. Will sign off on the patient. Please call with any questions or concerns. (2) Myofascial pain: (3) Cancer related pain: (4) Back pain: Back pain laterality: unspecified Back pain location: back pain in unspecified location Chronicity: chronic Qualified Code(s): M54.9 - Dorsalgia, unspecified; G89.29 - Other chronic pain (5) Compression fracture: Subjective Mrs. Alexander is a 78 year old white female with colon cancer and metastasis to the lung and spine. She did sustain a T9 and T11 compression fracture and received a kyphoplasty 1 month ago. She also has sacral insufficiency fractures. Over the past 24 hours, she has been reporting fair pain relief. In the middle of the night she did experience some breakthrough pain which she did take Tylenol for at 3AM. There was mild nausea last night which did resolve. No vomiting. After the Tylenol started to take effect, her pain did become more manageable. This morning her pain is well controlled. She does remain on Fentanyl patch 25mcg every 72 hours without any side effects including confusion, drowsiness, or constipation. Patient did have a bowel movement this morning without difficulty. There is some shaking in her hands today but not bothersome. She denies any constitutional complaints. Case discussed with Dr. Kenzie Delacruz Pain Assessment Pain Assessment [facility] Combined Pain Scale: 3-Mild - Interferes with pleasures of life. Stops some activities Physical Exam Physical Exam: GENERAL: 78 year old white female is sitting in the hospital chair, in no acute distress. Speech and cognition is intact. Mood and affect is appropriate. NEURO: Awake, alert, and oriented x 3.
[2018-12-02] MEDS: PANTOprazole 40 MG TAB PO SCH (08:43)
[2018-12-02] MEDS: AMLODIPINE BESYLATE 5 MG TAB PO SCH (08:43)
[2018-12-02] MEDS: predniSONE 20 MG TAB PO SCH (08:44)
[2018-12-02] MEDS: LIDOCAINE 5% 1 PATCH TD SCH (08:49)
--- NOTE | 2018-12-02 16:18 | Hospitalist Progress Note ---
Date of Service December 02, 2018 Assessment & Plan (1) Generalized anxiety disorder with panic attacks: LACIE, Panic Attacks Started on Escitalopram 10mg daily Appreciate Psychiatry Input Likely prednisone contributing, discontinue (2) Myofascial pain: Appreciate pain management Input Adjust baclofen to 5 mg BID Continue fentanyl 25 mcg and Tylenol for breakthrough pain No plan for trigger point injection as symptomatically improved Needs follow-up with pain management upon discharge (3) Sacral insufficiency fracture: Secondary to osteoporosis: Patient underwent kyphoplasty at [facility] Continue PT OT Lives at home with son Patient currently not interested in inpatient rehab placement Patient prefers to be discharged home with home PT (4) History of pulmonary embolism: Continue SQ Lovenox high risk of thromboembolism, hypercoagulable state in the setting of colon cancer with mets to lung CT chest noncontrast shows no evidence of acute PE Weaned off oxygen 2 step: Does not qualify for oxygen (5) Colon cancer metastasized to lung: Follows with hematology oncology Dr. Perez, Appreciate input from hematology oncology consult She has not been following with hematology oncology missed prior chemo treatment for the side effect of nausea vomiting diarrhea Need to reestablish care Patient's overall prognosis remains poor Hospice palliative care support would be appropriate (6) Back pain: Secondary to compression, fracture With kyphoplasty Has minimum improvement of symptoms Pain management consult appreciated Continue PT OT Hypertension Elevated likely secondary to anxiety, prednisone Increase amlodipine to 10 mg for better blood pressure control Monitor BP (7) Compression fracture: As outlined above Code Status: Full code DVT Px: SQ Lovenox Disposition: Plan to discharge home with home physical therapy Subjective Patient seen and examined at bedside Reports SOB on exertion--Likely anxiety contributing Saturating well on room air 2 step: did not qualify for oxygen BP has been variable Right sacral pain, spasm much improved Offers no other complaints Review of Systems Review of Systems: All systems reviewed & are unremarkable except as noted in HPI & below Physical Exam Physical Exam: Physical Exam: Vitals signs as noted above General Appearance:Moderately built and nourished, no apparent distress Head: normocephalic, Atraumatic Eyes: normal inspection, EOMI Neck: supple, Trachea midline Respiratory/Chest: Normal breath sounds, CTA Cardiovascular: S1, S2, No murmur Abdomen/GI:Soft, Non tender, Bowel sounds present Back: Paraspinal/Sacral tenderness Extremities/Musculoskelatal:normal inspection, no edema Neurologic/Psych:AAOX3, grossly no focal neurological deficits Skin: normal color, warm Results & Data Vital Signs (Past 12 Hours) Vital Signs Temp Pulse Pulse Pulse Pulse Resp Resp 12/02/18 15:00 36.7 C 89 20 12/02/18 11:53 36.6 C 51 L 20 12/02/18 11:52 89 93 H 75 24 12/02/18 07:21 36.4 C L 80 20 Resp Resp BP Pulse Ox Pulse Ox Pulse Ox Pulse Ox 12/02/18 15:00 167/93 H 93 12/02/18 11:53 171/89 H 95 12/02/18 11:52 24 20 92 94 95 12/02/18 07:21 150/88 H 95 (1) Back pain Back pain laterality: unspecified Back pain location: back pain in unspecified location Chronicity: chronic Qualified Code(s): M54.9 - Dorsalgia, unspecified; G89.29 - Other chronic pain
[2018-12-02] MEDS: LORazepam 0.5 MG TAB PO PRN (17:57)
[2018-12-02] MEDS: SENNA 8.8 MG/5 ML UDP PO SCH (20:09)
[2018-12-03] MEDS: LEVOTHYROXINE SODIUM 50 MCG TABLET PO SCH (06:04)
[2018-12-03] MEDS: BACLOFEN 10 MG TAB PO SCH (07:43)
[2018-12-03] MEDS: LIDOCAINE 5% 1 PATCH TD SCH ×2 (07:45→08:04)
[2018-12-03] MEDS: ENOXAPARIN INJ 40 MG/0.4 ML SYR SQ SCH (07:45)
[2018-12-03] MEDS: POLYETHYLENE (MIRALAX) 17 GM PACK PO SCH ×2 (07:46→08:04)
[2018-12-03] MEDS: CHECK FENTANYL PATCH PLACEMENT SCH (08:01)
[2018-12-03] MEDS: ESCITALOPRAM OXALATE 10 MG TAB PO SCH (08:35)
[2018-12-03] MEDS: PANTOprazole 40 MG TAB PO SCH (08:35)
[2018-12-03] MEDS: DOCUSATE SODIUM 100 MG CAP PO SCH ×2 (08:35→08:36)
[2018-12-03] MEDS ORDERED: AMLODIPINE BESYLATE 5 MG TAB PO SCH (09:00)
[2018-12-03] MEDS: ACETAMINOPHEN 325 MG TAB PO PRN (10:59)
[2018-12-03] MEDS: LORazepam 0.5 MG TAB PO PRN (10:59)
--- NOTE | 2018-12-03 14:51 | Hospitalist Progress Note ---
Date of Service December 03, 2018 Assessment & Plan (1) Generalized anxiety disorder with panic attacks: LACIE, Panic Attacks Started on Escitalopram 10mg daily Appreciate Psychiatry Input Likely prednisone contributing, discontinued prednisone (2) Myofascial pain: Appreciate pain management Input Adjust baclofen to 5 mg BID Continue fentanyl 25 mcg and Tylenol for breakthrough pain No plan for trigger point injection as symptomatically improved Needs follow-up with pain management upon discharge continue current meds (3) Sacral insufficiency fracture: Secondary to osteoporosis: Patient underwent kyphoplasty at [facility] Continue PT OT Lives at home with son Patient currently not interested in inpatient rehab placement Patient prefers to be discharged home with home PT (4) History of pulmonary embolism: Continue SQ Lovenox high risk of thromboembolism, hypercoagulable state in the setting of colon cancer with mets to lung CT chest noncontrast shows no evidence of acute PE Weaned off oxygen 2 step: Does not qualify for oxygen (5) Colon cancer metastasized to lung: Follows with hematology oncology Dr. Perez, Appreciate input from hematology oncology consult She has not been following with hematology oncology missed prior chemo treatment for the side effect of nausea vomiting diarrhea Need to reestablish care with Oncology Patient's overall prognosis remains poor Hospice palliative care support would be appropriate (6) Back pain: Secondary to compression, fracture With kyphoplasty Has minimum improvement of symptoms Pain management consult appreciated Continue PT OT Hypertension Elevated likely secondary to anxiety, prednisone Increase amlodipine to 10 mg for better blood pressure control Monitor BP (7) Compression fracture: As outlined above Code Status: Full code DVT Px: SQ Lovenox Disposition: Plan to discharge home with home physical therapy Subjective Patient is seen and examined at bedside Doing much better today Right sacral pain, spasm much improved No new complaints Denies chest pain, SOB, dizziness, nausea Discussed with family in detail Review of Systems Review of Systems: All systems reviewed & are unremarkable except as noted in HPI & below Physical Exam Physical Exam: Physical Exam: Vitals signs as noted above General Appearance:Moderately built and nourished, no apparent distress Head: normocephalic, Atraumatic Eyes: normal inspection, EOMI Neck: supple, Trachea midline Respiratory/Chest: Normal breath sounds, CTA Cardiovascular: S1, S2, No murmur Abdomen/GI:Soft, Non tender, Bowel sounds present Back: Paraspinal/Sacral tenderness Extremities/Musculoskelatal:normal inspection, no edema Neurologic/Psych:AAOX3, grossly no focal neurological deficits Skin: normal color, warm Results & Data Vital Signs (Past 12 Hours) Vital Signs Temp Pulse Resp BP BP Pulse Ox 12/03/18 11:18 36.7 C 86 20 168/97 H 93 12/03/18 07:08 36.7 C 74 18 179/100 H 173/86 H 94 12/03/18 05:24 36.7 C 76 19 176/84 H 94 (1) Back pain Back pain laterality: unspecified Back pain location: back pain in unspecified location Chronicity: chronic Qualified Code(s): M54.9 - Dorsalgia, unspecified; G89.29 - Other chronic pain
--- NOTE | 2018-12-03 15:04 | Discharge Summary ---
Date of Service December 03, 2018 Admission HPI Per Admitting Provider 78 y/o F with anxiety, HTN, HLD, colon cancer with metastasis to lung and spine, h/o PE who presented to ER 11/28/2018 with complaint of back pain for the past month. She was admitted to the hospitalist service, escitalopram 10 mg daily and lorazepam 0.5 mg every 6 hours as needed was added for anxiety. Psychiatry was consulted due to ongoing anxiety. On my assessment, the patient states that she gets "shaky" daily for about 30 minutes, and denies all other symptoms of panic and generalized anxiety. She later reports that she worries "a little." She denies any problems with mood. Sleep has been worse recently due to pain, but was improved last night as pain control is better. She denies anhedonia, suicidal ideation, changes in appetite, concentration, and guilt. Her son spoke with the primary attending and reported that the patient has always been anxious, and that at times feels so anxious she thinks she cannot breathe. She worries nonstop about her disease, pain, and finances. She worries about having to pay bills, and does not respond to reassurance from her son, even though he manages all of the financial concerns. She was seen by radiation oncology, who recommended against radiation therapy, and suggested orthopedic and palliative care consultations. She is also been seen by pain management, who are making multiple medication recommendations. She had some sedation thought to be due to polypharmacy (baclofen, fentanyl, lorazepam, and nortriptyline) Admission Exam Per Admitting Provider General: no acute distress currently, lying supine in bed in position of comfort, elderly female, WDWN Head: normocephalic, atraumatic Eyes: PERRL, EOM's intact, conjunctiva non-injected, anicteric ENT: normal inspection external ears, nose, mucous membranes moist Neck: supple, trachea midline, non-tender Lungs: clear, no respiratory distress, no wheezing/rhonchi/rales CV: RRR, no murmur, no pretibial edema Abd: normal BS, soft, non-tender Back: No discoloration or rashes noted. Positive tenderness over lower thoracic and upper lumbar spinous processes. Negative leg raising bilaterally to approximately 45 degrees. Patient able to flex and extend legs at hips and knees bilaterally, distal pulses palpable, sensation to light touch intact Ext: no cyanosis, no calf tenderness Neuro: A&O x 3, no focal deficits noted, mildly anxious affect Skin: warm, dry Principal Diagnosis Generalized anxiety disorder Back Pain Hypertension Discharge Data Allergies Allergy/AdvReac Type Severity Reaction Status Date / Time No Known Allergies Allergy Unverified 11/28/18 15:02 Consultations 11/28/18 17:41 ED Decision to Admit Stat 11/28/18 19:14 Consult Case Management - Discharge Planning Routine Consult Hematology Routine 11/28/18 20:00 Consult Pain Management Routine 11/28/18 20:01 Consult Radiation Oncology Routine 11/30/18 14:42 Consult Psychiatry Routine Procedures Performed Head CT: No acute intracranial abnormality. Age-related atrophy and chronic small vessel change Chest CTA: 1. There is no evidence of pulmonary embolus in the main, lobar, or proximal segmental pulmonary arteries. 2. There is unchanged appearance of multifocal pulmonary metastatic disease as compared to 11/25/2018. 3. Hepatic metastases are again identified. 4. There is no airspace consolidation typical for pneumonia or pleural effusion. Lumbar Spine CT: 1. No acute bony abnormality is identified involving the lumbar spine. There has been no change from the 11/25/[address] scan. 2. A chronic compression deformity of L4 and chronic posttraumatic change/insufficiency fractures of the sacrum are similar to previous. 3. Mild spondylosis as above. Thoracic Spine CT: 1. No acute bony abnormality is seen involving the thoracic spine. 2. There are numerous chronic compression deformities with evidence of T9 and T11 vertebroplasty. This is unchanged from 11/25/2018. 3. Mild paravertebral edema is noted at the T11 kyphoplasty level. This is nonspecific and may be on a postsurgical basis if vertebroplasty was recent. Clinical correlation will be required. 4. Multifocal pulmonary and hepatic metastases are again noted. Ordered Studies 11/28/18 15:14 CT thoracic spine wo con Stat 11/28/18 15:15 CT lumbar spine wo con Stat 11/30/18 05:50 CT angio chest PE protocol Stat 11/30/18 16:00 CT head/brain wo con Routine Hospital Course (1) Generalized anxiety disorder with panic attacks: LACIE, Panic Attacks Started on Escitalopram 10mg daily Appreciate Psychiatry Input Likely prednisone contributing, discontinued prednisone (2) Myofascial pain: Appreciate pain management Input Adjust baclofen to 5 mg BID Continue fentanyl 25 mcg and Tylenol for breakthrough pain No plan for trigger point injection as symptomatically improved Needs follow-up with pain management upon discharge continue current meds (3) Sacral insufficiency fracture: Secondary to osteoporosis: Patient underwent kyphoplasty at [facility] Continue PT OT Lives at home with son Patient currently not interested in inpatient rehab placement Patient prefers to be discharged home with home PT (4) History of pulmonary embolism: Continue SQ Lovenox high risk of thromboembolism, hypercoagulable state in the setting of colon cancer with mets to lung CT chest noncontrast shows no evidence of acute PE Weaned off oxygen 2 step: Does not qualify for oxygen (5) Colon cancer metastasized to lung: Follows with hematology oncology Dr. Perez, Appreciate input from hematology oncology consult She has not been following with hematology oncology missed prior chemo treatment for the side effect of nausea vomiting diarrhea Need to reestablish care with Oncology Patient's overall prognosis remains poor Hospice palliative care support would be appropriate (6) Back pain: Secondary to compression, fracture With kyphoplasty Has minimum improvement of symptoms Pain management consult appreciated Continue PT OT Hypertension Elevated likely secondary to anxiety, prednisone Increase amlodipine to 10 mg for better blood pressure control Monitor BP (7) Compression fracture: As outlined above Code Status: Full code DVT Px: SQ Lovenox Disposition: Plan to discharge home with home physical therapy Total Time Total Time Spent Total Time Spent (In Minutes): 39 minutes Total Time Includes: Examination of the Patient, Discharge Planning, Medication Reconciliation, Communication With Other Providers and Other Discharge Plan Discharge Items Patient Disposition: Home - Home Health Services Reason For Visit: INTRACTABLE BACK PAIN / BONE METS Discharge Diagnosis: Generalized anxiety disorder Back Pain Hypertension Activity: Resume your previous activity Exercise/Sports: Gradually increase as tolerated Non-emergency contact: Primary Care Provider, Specialist and Oncologist Call non-emergency contact if: you have any medication questions, your symptoms worsen, your pain is not controlled, your pain is worsening, your pain is un usual for you, your pain is concerning for you and you have a fever Follow-up/Referrals: Alessandra Barragan CRNP [Primary Care Provider] - Diet: Regular Addtl Attending Provider Instructions: Follow-up with your primary care physician Alessandra Barragan on December 06, 2018 at 10:35 AM Follow-up with your oncologist Dr. Perez in 2 to 4 weeks as advised Follow-up with your pain management Dr. Khan as needed Seek immediate medical attention if your symptoms reoccur or worsen Pending Studies at Discharge: No Stand-Alone Forms: [facility] Medications and DC Order Prescriptions: New baclofen 10 mg Tablet 5 mg PO BID 30 Days Qty: 30 RF: 0 escitalopram oxalate 10 mg Tablet 10 mg PO QAM 30 Days Qty: 30 RF: 0 amlodipine 10 mg tablet 10 mg PO DAILY Qty: 30 RF: 0 acetaminophen [Mapap (acetaminophen)] 325 mg Tablet 650 mg PO BID PRN (Reason: pain) Qty: 0 RF: 0 Continued ondansetron HCl 8 mg tablet 8 mg PO UD PRN (Reason: Nausea) RF: 0 levothyroxine 50 mcg tablet 50 mcg PO DAILY RF: 0 omeprazole 20 mg capsule,delayed release(DR/EC) 20 mg PO DAILY RF: 0 ergocalciferol (vitamin D2) [Vitamin D2] 50,000 unit capsule 50,000 unit PO WK RF: 0 fentanyl 25 mcg/hr patch 72 hour 25 mcg topical Q3D RF: 0 enoxaparin 40 mg/0.4 mL syringe 40 mg subcut DAILY RF: 0 Discontinued meloxicam 7.5 mg tablet 7.5 mg PO DAILY PRN (Reason: Muscle Spasm) RF: 0 oxycodone 5 mg tablet 5 mg PO Q4H PRN (Reason: Pain) RF: 0 Discharge Orders: Discharge Order (Routine); Ordered 12/03/18 Ordered By: Jorge Dykes Admission Data Admit Date/Time: 11/28/18 18:07 Attending Provider: Jorge Dykes Admit Provider: Kimberly Lino Primary Care Provider: Alessandra Barragan Other Providers: Kimberly Lino ; Hakan Perez ; Estee Knight ; Louisa Elaine ; Maximilian Oscar ; Sin Khan ; Gertrude De Dios Other Interventions: Discharge Summary Assessment (RN) Last Done: 12/03/18 15:06 DC Date/Time DO NOT enter until pt leaves facility: 12/03/18 16:15
== END 2018-12-03 16:15 | disposition home health service (06) | DRG 543 ==
LOC: ED 14:11 → SUATTDRO 18:07 → 2W 18:07